=== PATIENT | female | born 1970 | race Caucasian/White ===

== ENCOUNTER 2017-04-12 22:12 | Observation (INO) | payer OTHER ==
[2017-04-12 22:31] LABS: #Basophils 0.1 thou/uL (0.0-0.2); #Eosinphils 0.1 thou/uL (0.0-0.7); #Lymphocytes 2.3 thou/uL (1.20-3.40); #Monocytes 0.5 thou/uL (0.11-0.59); #Neutrophils 3.8 thou/uL (1.40-6.50); %Basophils 1.1 % (0.0-1.0); %Eosinophils 1.3 % (0.0-10.0); Hematocrit 35.9 % (36.0-47.0); Mean Platelet Volume 9.4 fL (7.4-10.4); White Blood Cell (WBC) Count 6.8 thou/uL (4.8-10.8)
[2017-04-12 22:38] LABS: PTT 27.4 SEC (22.9-36.1); Prothrombin Time 14.1 SEC (12.0-14.7)
[2017-04-12 22:44] LABS: ALT (SGPT) 21 U/L (8-55); AST (SGOT) 21 U/L (5-34); Alkaline Phosphatase 65 U/L (40-150); Anion Gap 13 mmol/L (10-20); BUN (Urea Nitrogen) 13 mg/dL (7.0-18.7); Bilirubin, Total 0.3 mg/dL (0.2-1.2); Calc. Creatinine Clearance 0 mL/min (70-130); Calcium 9.3 mg/dL (7.8-10.44); Carbon Dioxide 24 mmol/L (22-29); Chloride 106 mmol/L (98-107); Estimated GFR-MDRD 71; Globulin 3.7 g/dL (2.4-3.5); Protein, Total 7.5 g/dL (6.0-8.3)
[2017-04-12 22:49] LABS: Troponin I Less than 0.010 ng/mL (< 0.028)
[2017-04-12] MEDS ORDERED: Aspirin 325 MG TAB ONE (22:56)
--- NOTE | 2017-04-12 23:13 | CT ---
CT OF THE BRAIN WITHOUT CONTRAST 04/12/17 COMPARISON: 01/05/17 HISTORY: Right sided facial weakness and tingling. Slurred speech that is resolving. Patient was seen last no rmal at 45 minutes prior to arrival. TECHNIQUE: Multiple contiguous axial images were obtained in a CT of the brain without contrast. FINDINGS: The brain is normal in morphology and attenuation without focal lesions or confluent areas of infarc tion. There is no evidence of hydrocephalus, intracranial hemorrhage or extra-axial fluid collection . The calvarium and overlying soft tissues are unremarkable. The visualized paranasal sinuses and mast oid air cells are well aerated. IMPRESSION: No evidence of acute intracranial abnormality. Dr. Mendes notified of the findings at 10:22 p.m. on 04/12/17. POS: [facility]
[2017-04-12 23:36] LABS: Bilirubin Negative (Negative); Glucose, Urine (Dipstick) 250 mg/dL (Negative); Ketone, Urine Negative (Negative)
[2017-04-12 23:37] LABS: Blood, Urine Negative (Negative); Nitrite Negative (Negative); Protein, Urine (Dipstick) 30 mg/dL (Neg-Trace)
[2017-04-12 23:44] LABS: Bacteria/HPF None Seen HPF (None Seen); Hyaline Casts/LPF 0-3 HYALINE CAST LPF (0-3 Hyaline); RBC/HPF 0-3 HPF (0-3); Squamous Epithelial 0-3 HPF (0-3); WBC/HPF 0-3 HPF (0-3)
[2017-04-13] MEDS ORDERED: Sodium Chloride 0.9% 1,000 ML IV SCH (00:28)
[2017-04-13] MEDS ORDERED: Ondansetron HCl/PF 4 MG/2 ML Vial IVP PRN (00:28)
[2017-04-13] MEDS ORDERED: Acetaminophen 325 MG TAB PO PRN (00:28)
[2017-04-13] MEDS ORDERED: Ondansetron ODT 4 MG TAB SL PRN (00:28)
[2017-04-13 00:46] VITALS: BMI 25.4
[2017-04-13] MEDS ORDERED: Meclizine HCl 25 MG TAB PO PRN (07:41)
--- NOTE | 2017-04-13 07:41 | PDOC.EVN ---
Event Note - Event Note Event Note: H&P: [id number] TIA vs. CVA (Right-sided face/arm weakness/tingling with slurred speech) * Risk factors: h/o TIA last year, HTN, HLD, CAD, DM2 * CT brain: no acute issue * check MRI brain * check Carotid Dopplers * check ECHO * consult neurology * consult PT/OT * check labs in AM #CAD * no chest pain * continue home meds #h/o RLE DVT * continue Eliquis #DM2 * check HbA1c * SSI * f/u accu checks #HLD * check FLP #Hypothyroidism * continue replacement therapy Admit to stroke unit.
[2017-04-13] MEDS ORDERED: Dextrose 5% in Water 1,000 ML IV PRN (07:42)
[2017-04-13] MEDS ORDERED: Dextrose 50% Abboject 50 ML SYRINGE SLOW IVP PRN (07:42)
[2017-04-13] MEDS ORDERED: Lorazepam 2 MG/ML VIAL SLOW IVP SCH (08:00)
[2017-04-13] MEDS ORDERED: Aspirin 325 mg Enteric Coated Tablet PO SCH (09:00)
[2017-04-13] MEDS ORDERED: INSULIN GLARGINE HUM REC ANLOG 40 UNIT SC SCH (09:00)
[2017-04-13] MEDS ORDERED: Levothyroxine Sodium 50 MCG TAB PO SCH (09:00)
[2017-04-13] MEDS: Gabapentin 300 MG CAP PO SCH ×3 (09:56→20:45)
[2017-04-13] MEDS: Losartan Potassium 25 MG TAB PO SCH (09:56)
--- NOTE | 2017-04-13 09:56 | HP ---
DATE OF ADMISSION: 04/13/2017 at 7:49 a.m. CHIEF COMPLAINT: Right-sided weakness and slurred speech. HISTORY OF PRESENT ILLNESS: This is a 46-year-old female who presented as a result right-sided faci al and arm weakness and tingling and slurred speech. The symptoms occurred while she was driving ap proximately 45 minutes prior to arrival to the ER here. The patient does have risk factors for stro ke including a transient ischemic attack last year, hypertension, diabetes mellitus, dyslipidemia, a nd coronary artery disease. Currently, the patient reports that her right-sided symptoms are slightly better today. She does no t have any slurred speech on my exam. She denies any chest pain, shortness of breath, fevers, chill s, nausea or vomiting. REVIEW OF SYSTEMS: A 14 point review of systems is negative except as otherwise indicated above in the HPI. PAST MEDICAL HISTORY: 1. History of transient ischemic attack last year. 2. Right lower extremity DVT on Eliquis. 3. Hypertension. 4. Diabetes mellitus. 5. Dyslipidemia. 6. Coronary artery disease. PAST SURGICAL HISTORY: 1. Appendectomy. 2. section x2. FAMILY HISTORY: Reviewed and noncontributory to the presenting illness. SOCIAL HISTORY: The patient denies any tobacco, alcohol or illicit drug use. ALLERGIES/MEDICATIONS/LABORATORY/ IMAGING: Reviewed, please refer to chart for details. PHYSICAL EXAMINATION: VITAL SIGNS: Temperature 98.4, 66, 14, 94% on room air, 122/74. GENERAL: The patient was lying comfortably in bed when I entered the room in no acute distress. HEENT: Normocephalic, atraumatic. NECK: Supple, no masses. LYMPH NODES: No cervical or supraclavicular lymphadenopathy. CARDIOVASCULAR: S1 and S2 audible. Regular rate and rhythm. LUNGS: Clear to auscultation bilaterally with no wheezes, rales or rhonchi. ABDOMEN: Soft, nontender with positive bowel sounds. No guarding, rebound or rigidity. : No CVA tenderness bilaterally. No suprapubic tenderness either. MUSCULOSKELETAL: No calf tenderness bilaterally. No clubbing, cyanosis or edema of the extremities . PSYCHIATRIC: Appropriate, cooperative. NEUROLOGIC: Alert and oriented x3, answering questions appropriately with judgment intact. No faci al asymmetry. Facilities Painter is 5/5 bilaterally in the upper extremities. SKIN: Warm, dry. Moist mucous membranes. ASSESSMENT AND PLAN: This is a 46-year-old female who presented with right-sided facial and arm wea kness with tingling and slurred speech. 1. Cerebrovascular accident versus transient ischemic attack. Risk factors for stroke include hist ory of transient ischemic attack last year, hypertension, hyperlipidemia, coronary artery disease, a nd diabetes mellitus type 2. CT of the brain did not reveal any acute issues. We will check an MRI of the brain, carotid Dopplers and an echocardiogram. We will consult Neurology, Physical Therapy and Occupational Therapy. Check labs in the morning. 2. Coronary artery disease. No chest pain. Continue home medications. 3. History of right lower extremity deep venous thrombosis. Continue Eliquis. 4. Diabetes mellitus type 2. We will check a hemoglobin A1c and start sliding scale insulin. Foll ow up Accu-Cheks a.c. and at bedtime. 5. Hyperlipidemia. Check a fasting lipid panel. 6. Hypothyroidism. Continue replacement therapy. 7. Admit to the Stroke Unit.
[2017-04-13] MEDS: Apixaban 5 MG TAB PO SCH ×2 (09:57→20:45)
[2017-04-13] MEDS: Insulin Detemir 100 UNITS/ML 40 UNITS in Pre-Filled Syringe 1 EACH SC SCH (10:04)
--- NOTE | 2017-04-13 10:20 | ULT ---
BILATERAL CAROTID DUPLEX ULTRASOUND: DATE: 04/13/17 HISTORY: TIA. TECHNIQUE: Villela scale ultrasound with color flow and spectral Doppler imaging of the extracranial carotid arter y systems performed. FINDINGS: No significant plaque formation or intimal wall thickening is seen on either side. The peak systolic velocity in the right ICA measures 77 cm/second with an end-diastolic velocity of 25 cm/second and a systolic ratio of 0.96. The peak systolic velocity in the left ICA measures 68 cm/second with an end-diastolic velocity of 2 3 cm/second and a systolic ratio of 0.71. Flow in both vertebral arteries remains antegrade. IMPRESSION: No evidence of hemodynamically significant stenosis. POS: [facility]
--- NOTE | 2017-04-13 12:19 | MRI ---
MRI BRAIN WITHOUT CONTRAST: Date: 04/13/17 Multiplanar, multisequential imaging of brain obtained according to brain protocol. HISTORY: TIA. Right-sided facial weakness and tingling. Slurred speech. COMPARISON: MRI brain dated 06/30/16. FINDINGS: Ventricles remain normal size and position. No evidence of mass or edema. No evidence of restricted diffusion. No evidence of significant white matter abnormality. The intracranial internal carotid ar teries, proximal cerebral arteries, and basilar arteries show flow-voids. Dural venous sinuses appea r patent. Paranasal sinuses and mastoids appear clear. IMPRESSION: No evidence of acute process. POS: [facility]
[2017-04-13] MEDS: Insulin Regular 300 UNITS/3 ML VIAL SC PRN ×3 (12:48→20:46)
--- NOTE | 2017-04-14 02:35 | CON ---
DATE OF CONSULTATION: 04/13/2017 LOCATION: [address] [place] [address], [facility]. REASON FOR CONSULTATION: TIA. CONSULTING PHYSICIAN: Dr. Patel. HISTORY OF PRESENT ILLNESS: The history is obtained from the chart review and from the patient, who was able to provide history. Patient is a 46-year-old female with past medical history of right lo wer extremity DVT, on Eliquis; who is compliant with her Eliquis, hypertension, diabetes, dyslipidem ia, coronary artery disease, who has had several admissions in the past including one in 06/2016 wit h left-sided numbness of the face. Another admission in 12/2016 with dizziness, head numbness and p assing out, and another admission in 12/2016 where she had pressure in her head, bugs crawling on th e right side of her head and numbness of her fingers and feet and dizziness. All her workup in the past had been negative. Patient presents to the hospital because she says that for the past few days she was not feeling goo d. She was getting tired and short of breath, felt very weak and had to sit down. Then yesterday, she noticed that the right side of her body went numb including the head, face, arm, and leg. She h ad tingling and bugs crawling sensation. She felt dizzy. She said that her right side was weak and it would hurt when she would move her right side. She was told by other people that maybe she had some drooping of the face on the right side and slurred speech. At that time she denied any loss of consciousness, seizure activity. Denied any recent fever, infection. She said that she had a coup le of loose bowel movements yesterday morning. Because of her symptoms, she presented to the ER and was subsequently admitted for TIA workup. Currently, she still feels like she has pressure headache, has slurred speech. The numbness on the right side is better, but not completely resolved. She still feels weak on the right side. She ray d that she has history of migraine headaches, but has not had a migraine headache in the past 3-4 ye ars. She currently does have a headache, but it is not as intense as migraine headache. Currently, patient does mention that she has been under a lot of stress in lately because her son berg d some behavioral issues and had to be taken to [facility] and then has been moved to the long term today , so she has been constantly worried about him and is under a lot of stress because of that. She sa ys that she keep herself well hydrated. PAST MEDICAL HISTORY: As mentioned in the HPI. PAST SURGICAL HISTORY: Appendectomy, x2. FAMILY HISTORY: Noncontributory. SOCIAL HISTORY: Denies tobacco, alcohol or illicit drug use. ALLERGIES: Please review the chart. REVIEW OF SYSTEMS: As mentioned in the HPI, otherwise negative. PHYSICAL EXAMINATION: VITAL SIGNS: Temperature 98.7, pulse rate 70, respiratory rate 16, O2 sats 95% on room air, blood p ressure 124/62. GENERAL: Well-developed, well-nourished female, in no apparent distress. HEENT: Normocephalic, atraumatic. Normal sclerae. NECK: Supple. RESPIRATORY: Clear to auscultation bilaterally. CARDIOVASCULAR: Regular rate and rhythm. NEUROLOGIC: The patient is awake, alert, oriented x3. Speech and language intact. No aphasia, no dysarthria noted. The patient was slow in her responses. Cranial nerves: Pupils were reactive to light bilaterally. Extraocular movements were intact. Visual lynch were full bilaterally. No fac ial droop noted. Facial sensation intact and symmetric bilaterally. No nystagmus noted. Motor: N ormal tone and bulk. The patient had 5/5 strength in bilateral upper and lower extremity. Finger t apping and finger gripping intact and symmetric bilaterally. Sensation intact to fine touch through out. Reflexes 1+. Coordination was intact to [id number] testing in upper extremities and i ntact in lower extremities as well. Gait and Romberg not tested. LABORATORY DATA: CBC with normal white cell count. Chemistry: Glucose 200. Electrolytes normal. LFTs normal. Urinalysis showed protein and glucose. IMAGING: The patient had CT head done on admission, which did not show any acute intracranial abnor mality. MRI brain was done, which did not show any acute intracranial process, no acute infarct, no mass, no edema, no evidence of demyelinating lesions. No hemorrhage. The patient had carotid Dopp ler study done, which did not show any significant stenosis. IMPRESSION: 1. Symptoms of right-sided numbness, tingling, weakness, slurred speech, and questionable facial dr oop. 2. Pressure headache. 3. Stress. RECOMMENDATIONS: 1. Patient's MRI did not show any acute stroke, did not show any mass or lesions or demyelination, no hemorrhage. The patient still continues to have her symptoms, even though improved and MRI being negative, tells us that this is not due to any acute intracranial abnormality. Her symptoms could be due to headache related, part of possible migraine event or could be stress related as well. As mentioned earlier MRI did not show any acute stroke, so this is not stroke related, not related to a ny mass, hemorrhage or demyelinating lesions. This could be headache related or stress related. At this point, recommend continuing patient on home dose Eliquis only, informed the patient that addin g aspirin to Eliquis would increase the risk of bleeding and since MRI does not show any stroke, it would not be beneficial to add aspirin to Eliquis and it will only increase the risk of bleeding. S o, at this point do not recommend that, just continue patient on home dose Eliquis. 2. Continue medical management per primary team. No other recommendations from neurological standp oint. Continue follow up with PT, OT, and speech therapy. 3. Continue medical management per primary team. We will sign off. Please call us with questions.
[2017-04-14 05:24] LABS: #Basophils 0.1 thou/uL (0.0-0.2); #Eosinphils 0.1 thou/uL (0.0-0.7); #Lymphocytes 1.9 thou/uL (1.20-3.40); #Monocytes 0.4 thou/uL (0.11-0.59); #Neutrophils 3.9 thou/uL (1.40-6.50); %Basophils 0.9 % (0.0-1.0); %Eosinophils 2.2 % (0.0-10.0); %Lymphocytes 29.4 % (21.0-51.0); %Monocytes 6.6 % (0.0-10.0); Hematocrit 37.6 % (36.0-47.0); Mean Platelet Volume 9.6 fL (7.4-10.4); Red Blood Cell (RBC) Count 4.71 mill/uL (4.20-5.40); White Blood Cell (WBC) Count 6.4 thou/uL (4.8-10.8)
[2017-04-14 05:32] LABS: Hemoglobin A1c 8.9 % (4.0-6.0)
[2017-04-14 05:46] LABS: Anion Gap 13 mmol/L (10-20); BUN (Urea Nitrogen) 13 mg/dL (7.0-18.7); Calc. Creatinine Clearance 103 mL/min (70-130); Calcium 9.3 mg/dL (7.8-10.44); Carbon Dioxide 23 mmol/L (22-29); Chloride 107 mmol/L (98-107); Cholesterol 178 mg/dl (< 200 Desired); Estimated GFR-MDRD 88; LDL Cholesterol, Calculated 110 mg/dL; Magnesium 1.9 mg/dL (1.6-2.6)
[2017-04-14] MEDS ORDERED: Levothyroxine Sodium 50 MCG TAB PO SCH (06:00)
--- NOTE | 2017-04-14 07:42 | PDOC.PN ---
- Subjective Encounter Start Date: 04/14/17 Encounter Start Time: 07:39 Subjective: Moderate GONZALEZ today -: No n/v -: No f/c - Objective MAR Reviewed: Yes Vital Signs & Weight: Vital Signs (12 hours) Temp Pulse Resp BP Pulse Ox 04/14/17 04:42 97.8 F 61 16 99/54 L 98 04/13/17 23:10 98.3 F 66 16 116/64 95 04/13/17 20:00 98.4 F 73 16 137/87 98 Weight Weight 145 lb 14.4 oz I&O: 04/13/17 04/14/17 04/15/17 06:59 06:59 06:59 Intake Total 926 1250 Balance 926 1250 Result Diagrams: 04/14/17 04:48 04/14/17 04:49 Additional Labs: Accuchecks 04/14/17 04/13/17 04/13/17 04:23 20:25 16:59 POC Glucose 136 H 217 H 181 H 04/13/17 11:41 POC Glucose 178 H Phys Exam - Physical Examination Constitutional: NAD HEENT: moist MMs, sclera anicteric Neck: no nodes, no JVD Respiratory: no wheezing, no rales, no rhonchi, clear to auscultation bilateral Cardiovascular: no significant murmur, no rub Gastrointestinal: soft, non-tender, positive bowel sounds Neurological: non-focal Psychiatric: normal affect Skin: no rash, normal turgor Dx/Plan - Plan TIA vs. Migraine (Right-sided face/arm weakness/tingling with slurred speech) * Risk factors: h/o TIA last year, HTN, HLD, CAD, DM2 * CT brain: no acute issue * MRI brain: no acute issue * Carotid Dopplers: unremarkable * ECHO: pending * consulted neurology - signed off * LDL 110 * PT/OT * will start IVFs as pt is hypotensive and dehydration could be contributing to her headache * check labs in AM #CAD * no chest pain * continue home meds #h/o RLE DVT * continue Eliquis #DM2 * HbA1c: 8.9% * SSI * f/u accu checks #HLD * check FLP #Hypothyroidism * continue replacement therapy Dispo: Home tomorrow after re-hydrated with IVFs.
[2017-04-14] MEDS ORDERED: Sodium Chloride 0.9% 1,000 ML IV SCH (07:45)
[2017-04-14] MEDS: Insulin Detemir 100 UNITS/ML 40 UNITS in Pre-Filled Syringe 1 EACH SC SCH (09:30)
[2017-04-14] MEDS: Gabapentin 300 MG CAP PO SCH ×2 (09:31→14:35)
[2017-04-14] MEDS: Apixaban 5 MG TAB PO SCH (09:31)
[2017-04-14] MEDS: Losartan Potassium 25 MG TAB PO SCH (09:31)
[2017-04-14] MEDS: Insulin Regular 300 UNITS/3 ML VIAL SC PRN (11:21)
[2017-04-14] MEDS ORDERED: Acetaminophen 325 MG TAB PO PRN (11:45)
[2017-04-14] MEDS ORDERED: Hydrocortisone 1% Cream 1.5 GM Packet TOP PRN (11:46)
--- NOTE | 2017-04-14 15:33 | PDOC.EVN ---
Event Note - Event Note Event Note: Discharge Summary: [id number]
[2017-04-14 15:52] VITALS: BP 130/83; TEMP 98.7
--- NOTE | 2017-04-14 20:01 | DIS ---
DATE OF ADMISSION: 04/13/2017 DATE OF DISCHARGE: 04/14/2017 PRIMARY DISCHARGE DIAGNOSIS: Migraines headache versus transient ischemic attack with right-sided f jonatan and arm weakness with tingling and slurred speech. SECONDARY DISCHARGE DIAGNOSES: 1. Coronary artery disease. 2. Right lower extremity deep venous thrombosis. 3. Diabetes mellitus type 2. 4. Hyperlipidemia. 5. Hypothyroidism. HOSPITAL COURSE SUMMARY: This is a very pleasant 46-year-old female, who presented with right-sided face and arm weakness with tingling and slurred speech. Her symptoms resolved soon after presentin g to the hospital and likely had a TIA versus migraine. Her CT of the brain, MRI of the brain, claudio tid Dopplers and echo were unremarkable. Neurology did not have anything to add in terms of stroke workup. The patient will be prescribed on a statin for elevated LDL. She has now been slightly hyd rated as dehydration was likely reasonable at least apart for her migraine. DISCHARGE PHYSICAL EXAMINATION, LABS AND IMAGING: Reviewed. Please refer to chart for details. DISCHARGE MEDICATIONS: Reviewed and reconciled. Please refer to EMR for details. DISCHARGE PLAN/DISPOSITION: 1. Discharge home today. 2. The patient has been advised to maintain adequate hydration and avoid dry mouth and signs of deh ydration.
[2017-04-14] MEDS ORDERED: Simvastatin 5 MG TAB PO SCH (21:00)
== END 2017-04-14 17:30 | disposition home or self-care (01) ==
LOC: ERS 22:12 → 2SE 23:12
PROVIDERS: ADMIT Internal Medicine; ATTEND Internal Medicine
DX: G43.909 Migraine, unspecified, not intractable, without status migrainosus (principal); G45.9 Transient cerebral ischemic attack, unspecified; R29.810 Facial weakness; R53.1 Weakness; R20.2 Paresthesia of skin; R47.81 Slurred speech; I25.10 Atherosclerotic heart disease of native coronary artery without angina pectoris; I82.401 Acute embolism and thrombosis of unspecified deep veins of right lower extremity; E11.9 Type 2 diabetes mellitus without complications; E78.5 Hyperlipidemia, unspecified; E03.9 Hypothyroidism, unspecified; E86.0 Dehydration; I10 Essential (primary) hypertension; Z79.4 Long term (current) use of insulin; Z79.01 Long term (current) use of anticoagulants; Z79.899 Other long term (current) drug therapy; Z88.5 Allergy status to narcotic agent; Z88.0 Allergy status to penicillin; Z88.2 Allergy status to sulfonamides; Z90.49 Acquired absence of other specified parts of digestive tract; Z98.890 Other specified postprocedural states; Z87.891 Personal history of nicotine dependence
CPT/HCPCS: 36415; 36416; 70450; 70551; 80048; 80053; 80061; 81003; 81015; 82553; 83036; 83735; 84484; 85025; 85610; 85730; 93005; 93306; 93880; 94760; 96361; 96374; A4216; G0378; G8978-GP-CJ; G8979-GP-CJ; G8980-GP-CJ; G8987-GO-CI; G8988-GO-CI; G8989-GO-CI; J1815; J2060

== ENCOUNTER 2017-04-29 12:10 | Emergency (ER) | payer OTHER ==
[2017-04-29 13:30] LABS: Bilirubin Negative (Negative); Blood, Urine Negative (Negative); Glucose, Urine (Dipstick) Negative (Negative); Ketone, Urine Negative (Negative); Nitrite Negative (Negative); Protein, Urine (Dipstick) Trace mg/dL (Neg-Trace)
[2017-04-29] MEDS ORDERED: Metoclopramide HCl 10 MG/2 ML VIAL ONE (13:34)
[2017-04-29] MEDS ORDERED: diphenhydrAMINE HCl 50 MG/ML 1 ML VIAL ONE (13:34)
[2017-04-29 13:59] LABS: #Eosinphils 0.1 thou/uL (0.0-0.7); #Lymphocytes 1.4 thou/uL (1.20-3.40); #Monocytes 0.3 thou/uL (0.11-0.59); #Neutrophils 3.3 thou/uL (1.40-6.50); %Basophils 0.5 % (0.0-1.0); %Eosinophils 1.3 % (0.0-10.0); %Lymphocytes 27.8 % (21.0-51.0); %Monocytes 6.4 % (0.0-10.0); Mean Platelet Volume 9.2 fL (7.4-10.4); Red Blood Cell (RBC) Count 4.27 mill/uL (4.20-5.40); White Blood Cell (WBC) Count 5.2 thou/uL (4.8-10.8)
[2017-04-29 14:05] LABS: PTT 29.5 SEC (22.9-36.1); Prothrombin Time 16.5 SEC (12.0-14.7)
[2017-04-29 14:25] LABS: ALT (SGPT) 22 U/L (8-55); AST (SGOT) 21 U/L (5-34); Alkaline Phosphatase 63 U/L (40-150); Anion Gap 12 mmol/L (10-20); BUN (Urea Nitrogen) 11 mg/dL (7.0-18.7); Bilirubin, Total 0.5 mg/dL (0.2-1.2); Calc. Creatinine Clearance 0 mL/min (70-130); Calcium 8.9 mg/dL (7.8-10.44); Carbon Dioxide 26 mmol/L (22-29); Chloride 104 mmol/L (98-107); Estimated GFR-MDRD 85; Globulin 3.4 g/dL (2.4-3.5); Protein, Total 6.9 g/dL (6.0-8.3)
== END 2017-04-29 15:13 | disposition home or self-care (01) ==
LOC: ERS 12:10
DX: E11.40 Type 2 diabetes mellitus with diabetic neuropathy, unspecified (principal); R51 Headache; E78.5 Hyperlipidemia, unspecified; I10 Essential (primary) hypertension; F31.9 Bipolar disorder, unspecified; Z86.718 Personal history of other venous thrombosis and embolism
CPT/HCPCS: 36415; 80053; 81003; 81025; 85025; 85610; 85730; 96361; 96365; 96375; J1200; J2765

== ENCOUNTER 2017-09-07 05:51 | Emergency (ER) | payer OTHER ==
[2017-09-07 06:27] LABS: #Eosinphils 0.1 thou/uL (0.0-0.7); #Lymphocytes 1.9 thou/uL (1.20-3.40); #Monocytes 0.4 thou/uL (0.11-0.59); #Neutrophils 1.8 thou/uL (1.40-6.50); %Basophils 0.1 % (0.0-1.0); %Eosinophils 2.7 % (0.0-10.0); %Lymphocytes 45.3 % (21.0-51.0); Hemoglobin 10.5 g/dL (12.0-16.0); Mean Corpuscular HGB CONC 31.9 g/dL (32.0-36.0); Mean Corpuscular Hemoglobin 24.8 pg (27.0-31.0); Mean Corpuscular Volume 77.6 fl (81.0-99.0); Platelet Count 204 thou/uL (130-400); RBC Distribution Width 14.7 % (11.5-14.5); Red Blood Cell (RBC) Count 4.24 mill/uL (4.20-5.40); White Blood Cell (WBC) Count 4.3 thou/uL (4.8-10.8)
[2017-09-07 06:48] LABS: ALT (SGPT) 24 U/L (8-55); AST (SGOT) 26 U/L (5-34); Alkaline Phosphatase 74 U/L (40-150); Anion Gap 12 mmol/L (10-20); BUN (Urea Nitrogen) 19 mg/dL (7.0-18.7); Bilirubin, Total 0.2 mg/dL (0.2-1.2); CK (CPK) 153 U/L (29-168); Calc. Creatinine Clearance 0 mL/min (70-130); Calcium 9.8 mg/dL (7.8-10.44); Carbon Dioxide 29 mmol/L (22-29); Chloride 105 mmol/L (98-107); Estimated GFR-MDRD 67; Globulin 3.6 g/dL (2.4-3.5); Glucose 236 mg/dL (70-105); Potassium 3.5 mmol/L (3.5-5.1); Protein, Total 7.6 g/dL (6.0-8.3); Sodium 142 mmol/L (136-145)
[2017-09-07 06:52] LABS: CKMB 1.7 ng/mL (0-6.6); Troponin I Less than 0.010 ng/mL (< 0.028)
[2017-09-07] MEDS ORDERED: Ondansetron HCl/PF 4 MG/2 ML Vial ONE (06:52)
[2017-09-07] MEDS ORDERED: Aspirin 325 MG TAB ONE (06:58)
--- NOTE | 2017-09-07 07:52 | RAD ---
RADIOGRAPH CHEST 1 VIEW: DATE: 09/07/17. TIME: 6:20 a.m. HISTORY: A 46-year-old female with acute chest pain. FINDINGS: There is no air space density, pulmonary edema, or pneumothorax. The lateral costophrenic angles are sharp. IMPRESSION: No acute pulmonary findings. jn [] POS: [facility]
--- NOTE | 2017-09-07 08:42 | ULT ---
ULTRASOUND WITH DOPPLER DUPLEX VENOUS LOWER EXTREMITY LEFT: CPT: 52644 ICD-10-PCS: B54D HISTORY: Pain and edema. TECHNIQUE: Color flow Doppler, spectral waveform analysis of pulsed Doppler, and omer-scale imaging with ramon michelle and augmentation, were used to evaluate the bilateral common femoral, femoral, popliteal, director ambulatory ior tibial, and superficial femoral, veins; and the proximal portions of the profunda femoral and gre ater saphenous, veins. FINDINGS: Appropriate compressibility and flow within the imaged deep vein system of the left lower extremity. IMPRESSION: No deep venous thrombosis. POS: [facility]
[2017-09-07 08:58] LABS: Troponin I Less than 0.010 ng/mL (< 0.028)
--- NOTE | 2017-09-30 17:34 | EKG ---
Test Reason : Blood Pressure : / mmHG Vent. Rate : 067 BPM Atrial Rate : 067 BPM P-R Int : 182 ms QRS Dur : 080 ms QT Int : 402 ms P-R-T Axes : 017 -08 028 degrees QTc Int : 424 ms Normal sinus rhythm Nonspecific T wave abnormality Abnormal ECG Confirmed by FLIP MONTGOMERY, PENELOPE ([id number]), online content editor ROSALIE GODOY ([id number]) on 09/30/2017 5:33:21 PM Referred By: Confirmed By:PENELOPE CASTELAN MD
== END 2017-09-07 09:45 | disposition home or self-care (01) ==
LOC: ERS 05:51
DX: R07.89 Other chest pain (principal); E11.9 Type 2 diabetes mellitus without complications; E78.5 Hyperlipidemia, unspecified; I10 Essential (primary) hypertension; F31.9 Bipolar disorder, unspecified; Z79.899 Other long term (current) drug therapy; Z79.4 Long term (current) use of insulin
CPT/HCPCS: 36415; 71045; 80053; 82550; 82553; 84484; 85025; 93005; 96374; J2405

== ENCOUNTER 2017-10-13 21:12 | Observation (INO) | payer OTHER ==
[~2017-10-13 21:12] MED LIST: ISOVUE-370 76%-LOCM 1 ML ONE
--- NOTE | 2017-10-13 21:47 | RAD ---
ONE VIEW CHEST: 10/13/17 HISTORY: Chest pain. COMPARISON: 09/07/17 FINDINGS: Portable upright chest demonstrates a normal cardiac silhouette. The pulmonary vessels and hilum are normal. Costophrenic angles are clear. Costophrenic angles are clear. No consolidation or mass. No pn eumothorax or osseous abnormalities. Mild elevation of the right hemidiaphragm, nonspecific. IMPRESSION: No acute cardiopulmonary process. POS: [facility]
[2017-10-13 21:51] LABS: #Lymphocytes 2.1 thou/uL (1.20-3.40); #Monocytes 0.4 thou/uL (0.11-0.59); #Neutrophils 2.9 thou/uL (1.40-6.50); %Basophils 0.4 % (0.0-1.0); %Eosinophils 0.9 % (0.0-10.0); %Lymphocytes 38.4 % (21.0-51.0); %Monocytes 6.4 % (0.0-10.0); %Neutrophils 53.9 % (42.0-75.0); Hemoglobin 10.4 g/dL (12.0-16.0); Mean Corpuscular Hemoglobin 24.2 pg (27.0-31.0); Mean Corpuscular Volume 75.8 fl (81.0-99.0); Mean Platelet Volume 9.2 fL (7.4-10.4); Platelet Count 200 thou/uL (130-400); RBC Distribution Width 15.4 % (11.5-14.5); Red Blood Cell (RBC) Count 4.29 mill/uL (4.20-5.40); White Blood Cell (WBC) Count 5.5 thou/uL (4.8-10.8)
[2017-10-13 22:03] LABS: BHCG - Serum Negative (NEGATIVE); Pregs Control Background? CLEAR/WHITE (CLR/WHITE); Pregs Control Bar Appear? YES (CONTROL BAR)
[2017-10-13 22:11] LABS: ALT (SGPT) 17 U/L (8-55); AST (SGOT) 18 U/L (5-34); Albumin 3.7 g/dL (3.5-5.0); Alkaline Phosphatase 66 U/L (40-150); Anion Gap 11 mmol/L (10-20); BUN (Urea Nitrogen) 10 mg/dL (7.0-18.7); Bilirubin, Total 0.4 mg/dL (0.2-1.2); Calc. Creatinine Clearance 0 mL/min (70-130); Calcium 9.3 mg/dL (7.8-10.44); Carbon Dioxide 28 mmol/L (22-29); Chloride 104 mmol/L (98-107); Estimated GFR-MDRD 82; Globulin 3.2 g/dL (2.4-3.5); Glucose 119 mg/dL (70-105); Potassium 3.5 mmol/L (3.5-5.1); Protein, Total 6.9 g/dL (6.0-8.3); Sodium 139 mmol/L (136-145)
[2017-10-13 22:14] LABS: CKMB 1.9 ng/mL (0-6.6); Troponin I Less than 0.010 ng/mL (< 0.028)
--- NOTE | 2017-10-13 22:15 | CT ---
EXAM: CT ANGIOGRAM OF CHEST: 10/13/17 HISTORY: Chest pain, starting 40 minutes prior to arrival. COMPARISON: 10/08/16 TECHNIQUE: CT angiogram performed in the axial plane. Bilateral oblique and coronal three dimensional reformatte d images are submitted for interpretation. FINDINGS: No mediastinal mass, lymphadenopathy or hematoma. Heart size is within normal limits. No pericardial effusion. Visualized aorta has an overall normal caliber. Evaluation is limited due to inactivity co ntrast opacification. Small amount of reflux into the proximal internal vena cava suggesting a minim al component of right heart failure. Correlate clinically. Visualized upper solid organs are unremark able. Trachea and central bronchi are patent. No masses or consolidation. No pleural effusion. No pneumotho rax. There are no lytic or blastic lesions within the osseous structures. Adequate contrast opacification of the pulmonary arterial system to the level of the segmental arteri es. No filling defect to imply thromboembolism. IMPRESSION: No evidence of pulmonary artery embolism to the level of the segmental arteries. POS: [facility]
[2017-10-13] MEDS ORDERED: Morphine 4 MG/ML VIAL ONE (22:40)
[2017-10-13] MEDS ORDERED: Ondansetron ODT 4 MG TAB SL PRN (23:51)
[2017-10-13] MEDS ORDERED: Ondansetron HCl/PF 4 MG/2 ML Vial IVP PRN (23:51)
[2017-10-13] MEDS ORDERED: Acetaminophen 325 MG TAB PO PRN (23:51)
[2017-10-14] MEDS ORDERED: Dextrose 50% Abboject 50 ML SYRINGE IVP PRN (00:23)
[2017-10-14] MEDS ORDERED: Dextrose 5% in Water 1,000 ML IV PRN (00:23)
[2017-10-14] MEDS ORDERED: HumaLOG 300 UNITS/3 ML VIAL SC PRN (00:23)
[2017-10-14] MEDS ORDERED: Morphine 5 MG/ML SYRINGE SLOW IVP PRN (00:24)
[2017-10-14] MEDS ORDERED: PROVENTIL INHALER 6.7 G (200 INHALATIONS) INH PRN (00:29)
[2017-10-14] MEDS ORDERED: Atorvastatin Calcium 40 MG TAB PO SCH ×2 (00:30→21:00)
[2017-10-14] MEDS ORDERED: Carvedilol 6.25 MG TAB PO SCH ×2 (00:30→09:00)
[2017-10-14] MEDS ORDERED: Apixaban 5 MG TAB PO SCH ×2 (00:30→09:00)
[2017-10-14] MEDS ORDERED: Nitroglycerin 2% Ointment 1 INCH/1 GM Packet TOP SCH ×2 (00:30→06:00)
[2017-10-14] MEDS ORDERED: Losartan 25 MG TAB PO SCH ×2 (00:30→21:00)
[2017-10-14] MEDS ORDERED: Gabapentin 300 MG CAP PO SCH ×2 (00:30→09:00)
[2017-10-14] MEDS ORDERED: OLANZapine 5 MG TAB PO SCH ×2 (00:30→21:00)
[2017-10-14 01:05] VITALS: BMI 25.7
[2017-10-14 01:44] LABS: Troponin I Less than 0.010 ng/mL (< 0.028)
[2017-10-14 05:00] LABS: Troponin I Less than 0.010 ng/mL (< 0.028)
[2017-10-14] MEDS ORDERED: Levothyroxine Sodium 50 MCG TAB PO SCH (06:00)
[2017-10-14 07:38] VITALS: BP 110/57; TEMP 98.6
[2017-10-14] MEDS ORDERED: Insulin Detemir 100 UNITS/ML 50 UNITS in Pre-Filled Syringe 1 EACH SC SCH (09:00)
--- NOTE | 2017-10-14 09:19 | SS ---
DISCHARGE DIAGNOSES: 1. Chest wall pain. 2. History of transient ischemic attack. 3. Diabetes. 4. Hypothyroid. 5. Chronic diastolic congestive heart failure. 6. History of coronary artery disease. 7. Hyperlipidemia. 8. Hypertension. 9. History of anemia. 10. Post-traumatic stress disorder. 11. Bipolar disorder. 12. History of pulmonary embolism. DISCHARGE MEDICATIONS: Prilosec 20 mg daily. Olanzapine 5 mg at bedtime, losartan 100, losartan 50 at bedtime, Victoza 1 unit subcu daily, Synthroid 50 daily, insulin 50 units subcu q.a.m., gabapenti n 600 p.o. t.i.d., Coreg 6.25 p.o. b.i.d., Lipitor 40 at bedtime, Eliquis 5 p.o. b.i.d., albuterol p. r.n., Tylenol p.r.n. BRIEF HISTORY: This is a 46-year-old white female with a history of diabetes, hypertension, pulmonar y embolism, who presented with chest pain. The patient has a history of chest pain. She was evaluat ed in the hospital approximately one year ago and underwent a stress test which was found to be unrem arkable. She has had carotid Dopplers which were also found to be unremarkable. She recently had a pulmonary embolism and she has been on Eliquis. She works as a greenhouse worker doing physical labor. Yest erday she was pushing a cart and felt a sharp left chest wall pain. Her chest was sore throughout th e evening, especially when she picked up objects. She presented to the emergency room and was admitt ed for further observation. HOSPITAL COURSE: Cardiac enzymes were done which her troponin levels were 0.010 x3. She states her chest pain is mostly with movement and exertion. No associated nausea, vomiting, diaphoresis. She h as frequent episodes of chest pain and Dr. Walters has her scheduled to see Cardiology in the near [facility]. PHYSICAL EXAMINATION: VITAL SIGNS: Temperature is 98.6, pulse 66, blood pressure 110/57, 99/60. HEENT: Clear. HEART: Regular rate and rhythm without murmur. LUNGS: Clear. ABDOMEN: The abdomen is soft, nontender. EXTREMITIES: The patient does have marked left chest wall tenderness to palpation. She has left ch est wall pain with exertion of her left upper extremity. It appears that she has a pectoralis strain . I recommended that the patient take Tylenol as needed. I informed her to follow up with Dr. Walters on Monday. She is not to return to work until cleared by Dr. Walters. If she has any recurrent ch est pain to return to the emergency room MARJORIE. Other labs; electrolytes are normal. Creatinine 0.76, BUN 10. White count 5.5, H&H 10 and 32.
== END 2017-10-14 09:17 | disposition home or self-care (01) ==
LOC: ERS 21:12 → 2SW 23:29
PROVIDERS: ADMIT Family Medicine; ATTEND Family Medicine
DX: R07.89 Other chest pain (principal); E11.9 Type 2 diabetes mellitus without complications; E03.9 Hypothyroidism, unspecified; I11.0 Hypertensive heart disease with heart failure; I50.32 Chronic diastolic (congestive) heart failure; I25.10 Atherosclerotic heart disease of native coronary artery without angina pectoris; E78.5 Hyperlipidemia, unspecified; D64.9 Anemia, unspecified; F43.10 Post-traumatic stress disorder, unspecified; F31.9 Bipolar disorder, unspecified; Z79.01 Long term (current) use of anticoagulants; Z79.4 Long term (current) use of insulin; Z79.899 Other long term (current) drug therapy; Z88.0 Allergy status to penicillin; Z88.2 Allergy status to sulfonamides; Z88.5 Allergy status to narcotic agent; Z86.711 Personal history of pulmonary embolism; Z86.73 Personal history of transient ischemic attack (TIA), and cerebral infarction without residual deficits
CPT/HCPCS: 36415; 36416; 71045; 71275; 80053; 82553; 84484; 84703; 85025; 93005; 96361; 96374; A4216; G0378; J1815; J2270

== ENCOUNTER 2017-11-03 14:23 | Outpatient (CLI) | payer OTHER ==
--- NOTE | 2017-11-03 15:18 | ULT ---
BILATERAL LOWER EXTREMITY VENOUS DOPPLER: HISTORY: M79.661, right calf pain. History of deep venous thrombosis. COMPARISON: None. TECHNIQUE: Real-time, omer scale, color Doppler, and spectral analysis of the bilateral lower extremity venous s ystem was performed with a linear ray transducer. Common femoral, femoral, proximal portion of great er saphenous and deep femoral veins as well as popliteal and posterior tibial veins were interrogated . FINDINGS: Normal flow, augmentation, and compression. No deep venous thrombosis. POS: [facility]
== END 2017-11-03 14:24 | disposition home or self-care (01) ==
LOC: ULT 14:23
PROVIDERS: ATTEND Family Medicine
DX: M79.661 Pain in right lower leg (principal)
CPT/HCPCS: 93970

== ENCOUNTER 2017-11-24 21:00 | Emergency (ER) | payer OTHER ==
[2017-11-24 22:05] LABS: #Basophils 0.1 thou/uL (0.0-0.2); #Eosinphils 0.1 thou/uL (0.0-0.7); #Lymphocytes 2.5 thou/uL (1.20-3.40); #Monocytes 0.4 thou/uL (0.11-0.59); #Neutrophils 3.1 thou/uL (1.40-6.50); %Basophils 1.3 % (0.0-1.0); %Eosinophils 1.1 % (0.0-10.0); %Lymphocytes 40.4 % (21.0-51.0); %Monocytes 6.4 % (0.0-10.0); %Neutrophils 50.9 % (42.0-75.0); Hemoglobin 11.9 g/dL (12.0-16.0); Mean Corpuscular HGB CONC 33.2 g/dL (32.0-36.0); Mean Corpuscular Volume 78.2 fl (81.0-99.0); Mean Platelet Volume 9.4 fL (7.4-10.4); Platelet Count 199 thou/uL (130-400); RBC Distribution Width 16.8 % (11.5-14.5); Red Blood Cell (RBC) Count 4.59 mill/uL (4.20-5.40); White Blood Cell (WBC) Count 6.1 thou/uL (4.8-10.8)
[2017-11-24 22:06] LABS: Bilirubin Negative (Negative); Blood, Urine Large (Negative); Clarity TURBID (Clear); Glucose, Urine (Dipstick) 250 mg/dL (Negative); Leukocyte Small (Negative); Nitrite Negative (Negative); Protein, Urine (Dipstick) 100 mg/dL (Neg-Trace); Specific Gravity, Urine 1.021 (1.002-1.036)
[2017-11-24 22:07] LABS: Pregnancy Test - Urine (BHCG) Negative (Negative); Pregu Control Background? CLEAR/WHITE (CLR/WHITE); Pregu Control Bar Appear? YES (CONTROL BAR); Specific Gravity 1.021 (1.002-1.036)
[2017-11-24 22:08] LABS: Bacteria/HPF None Seen HPF (None Seen); Hyaline Casts/LPF 0-3 HYALINE CAST LPF (0-3 Hyaline); Pathc Cast-AUWi Flag 0.49 (0-2.49); Squamous Epithelial 0-3 HPF (0-3)
[2017-11-24 22:12] LABS: RBC/HPF GREATER THAN 50-TNTC HPF (0-3); Yeast-AUWi Flag 44.1 (0-25.0)
[2017-11-24 22:27] LABS: ALT (SGPT) 22 U/L (8-55); AST (SGOT) 26 U/L (5-34); Alkaline Phosphatase 73 U/L (40-150); Anion Gap 11 mmol/L (10-20); BUN (Urea Nitrogen) 10 mg/dL (7.0-18.7); Bilirubin, Total 0.4 mg/dL (0.2-1.2); Calc. Creatinine Clearance 0 mL/min (70-130); Calcium 9.3 mg/dL (7.8-10.44); Carbon Dioxide 26 mmol/L (22-29); Chloride 106 mmol/L (98-107); Estimated GFR-MDRD 84; Globulin 3.5 g/dL (2.4-3.5); Glucose 108 mg/dL (70-105); Lipase 50 U/L (8-78); Potassium 3.2 mmol/L (3.5-5.1); Protein, Total 7.5 g/dL (6.0-8.3); Sodium 140 mmol/L (136-145)
[2017-11-24 22:32] LABS: CKMB 3.6 ng/mL (0-6.6); Troponin I Less than 0.010 ng/mL (< 0.028)
== END 2017-11-25 01:25 | disposition home or self-care (01) ==
LOC: ERS 21:00
DX: R10.30 Lower abdominal pain, unspecified (principal); R11.0 Nausea; N93.9 Abnormal uterine and vaginal bleeding, unspecified; E11.9 Type 2 diabetes mellitus without complications; E78.5 Hyperlipidemia, unspecified; I10 Essential (primary) hypertension; F31.9 Bipolar disorder, unspecified; Z79.4 Long term (current) use of insulin; Z79.899 Other long term (current) drug therapy
CPT/HCPCS: 36415; 80053; 81003; 81015; 81025; 82553; 83690; 84484; 85025; 93005

== ENCOUNTER 2017-12-22 23:07 | Inpatient (IN) | payer OTHER ==
[2017-12-22 23:47] LABS: #Eosinphils 0.1 thou/uL (0.0-0.7); #Lymphocytes 2.1 thou/uL (1.20-3.40); #Monocytes 0.4 thou/uL (0.11-0.59); #Neutrophils 3.1 thou/uL (1.40-6.50); %Basophils 0.3 % (0.0-1.0); %Eosinophils 1.2 % (0.0-10.0); %Lymphocytes 37.5 % (21.0-51.0); %Monocytes 7.1 % (0.0-10.0); Hemoglobin 10.6 g/dL (12.0-16.0); Mean Corpuscular HGB CONC 33.3 g/dL (32.0-36.0); Mean Corpuscular Volume 77.9 fl (81.0-99.0); Mean Platelet Volume 8.9 fL (7.4-10.4); Platelet Count 201 thou/uL (130-400); RBC Distribution Width 15.5 % (11.5-14.5); Red Blood Cell (RBC) Count 4.07 mill/uL (4.20-5.40); White Blood Cell (WBC) Count 5.7 thou/uL (4.8-10.8)
[2017-12-22 23:55] LABS: BHCG - Serum Negative (NEGATIVE); Pregs Control Background? CLEAR/WHITE (CLR/WHITE); Pregs Control Bar Appear? YES (CONTROL BAR)
--- NOTE | 2017-12-23 | CT ---
CT ABDOMEN AND PELVIS WITH CONTRAST 12/22/17 Multiple axial tomograms obtained through the abdomen and pelvis with IV enhancement. INDICATIONS: Abdominal pain. Left lower quadrant pain. Lung bases clear. Liver, spleen, pancreas unremarkable. Adrenal glands unremarkable. 1 cm cystic lesion in the left kidney. No hydronephrosis. No urinary tra ct calculus. Urinary bladder unremarkable. Small bowel loops appear normal. Colon unremarkable. Images through the pelvis reveal bilateral adnexal cystic lesions. There is a left adnexal cyst consi stent with an ovarian cyst measuring 4 cm and there is a right adnexal cyst consistent with an ovaria n cyst measuring 3.5 cm. No free fluid. Uterus unremarkable. Retroperitoneum unremarkable. IMPRESSION: 1. There are bilateral ovarian cystic lesions identified. 2. Otherwise no acute process. POS: [facility]
[2017-12-23 00:01] LABS: ALT (SGPT) 18 U/L (8-55); AST (SGOT) 19 U/L (5-34); Albumin 3.9 g/dL (3.5-5.0); Alkaline Phosphatase 62 U/L (40-150); Anion Gap 13 mmol/L (10-20); BUN (Urea Nitrogen) 14 mg/dL (7.0-18.7); Bilirubin, Total 0.3 mg/dL (0.2-1.2); Calc. Creatinine Clearance 0 mL/min (70-130); Calcium 9.4 mg/dL (7.8-10.44); Carbon Dioxide 25 mmol/L (22-29); Chloride 106 mmol/L (98-107); Estimated GFR-MDRD 60; Globulin 3.2 g/dL (2.4-3.5); Glucose 189 mg/dL (70-105); Potassium 3.6 mmol/L (3.5-5.1); Protein, Total 7.1 g/dL (6.0-8.3); Sodium 140 mmol/L (136-145)
[2017-12-23] MEDS ORDERED: Morphine 10 MG/ML VIAL ONE (00:44)
[2017-12-23] MEDS ORDERED: Ondansetron HCl/PF 4 MG/2 ML Vial IVP PRN (02:03)
[2017-12-23] MEDS ORDERED: Acetaminophen 325 MG TAB PO PRN (02:03)
[2017-12-23] MEDS ORDERED: Ondansetron ODT 4 MG TAB SL PRN (02:03)
[2017-12-23] MEDS ORDERED: Morphine 4 MG/ML VIAL SLOW IVP PRN ×2 (02:04)
[2017-12-23 02:29] VITALS: BMI 24.0
[2017-12-23] MEDS: Sodium Chloride 0.9% 1,000 ML IV SCH ×2 (03:25→09:10)
[2017-12-23] MEDS: Sodium Chloride 0.45% 1,000 ML IV SCH ×2 (12:27→19:51)
--- NOTE | 2017-12-23 13:58 | HP ---
CHIEF COMPLAINT: Left lower quadrant abdominal pain with bloody stools. HISTORY OF PRESENT ILLNESS: This is a 47-year-old female patient of Dr. Walters's who cam e to the emergency room after acute change to her bowels. She started noticing left lower quadrant c ramping and noticed a bloody mucoid discharge in stool. She also noted that her stools are very thin caliber about the size of a pencil lead and very bright green. In the ER, her hemoglobin was noted to be at 10.5 and a month ago was almost 12. She has been on Eliquis for PEs for a couple years such a contributing factor. PAST MEDICAL HISTORY: Positive for multiple PEs and chronic anticoagulation therapy with Eliquis, in sulin-dependent diabetes, Printzmetal's angina, history of esophageal strictures, history of Helicoba cter pylori infection, history of hypothyroidism, has had a TIA, has a diastolic congestive heart garima lure, hypertension, hyperlipidemia. She has diabetic neuropathy. She has bipolar disorder, likely s econdary to a remote history of crack cocaine and methamphetamine addiction, which she has stopped 17 years ago and also she had a left leg DVT, followed by multiple PEs. PAST SURGICAL HISTORY: She had appendectomy. She had a x2 and had a bilateral tubal ligat ion. She had an esophageal dilation done at [facility] in 2017. ALLERGIES: PENICILLIN, SULFA, and CODEINE. MEDICATIONS: What she could not remember when she came to the emergency room was Eliquis 5 mg b.i.d. , Lantus 50 units in the morning, NovoLog, she is on a sliding scale q.a.c., says she averages about 4 units. She is also on Victoza 18 mg daily. She is on losartan 100 mg, Synthroid 25 mcg, and gabap entin 600 mg t.i.d. She also thought she might have been on lisinopril. Confirmed with the office francis tamez, she is no longer on lisinopril. Office chart also showed that she is on carvedilol 6.25 mg b.i .d., Lipitor 10 mg a day, BuSpar 10 mg b.i.d., hydroxyzine 50 mg a day and olanzapine 5 mg a day. FAMILY HISTORY: She has 2 maternal aunts who had pancreatic cancer, diabetes and coronary artery dis ease in her father. Mother is also still alive, but no chronic diseases. SOCIAL HISTORY: She is , has two living children, both by . She had 2 children that , one from a miscarriage and one was stillborn. Their youngest child is 22 and has sever e MR and lives with them. She has no current toxic habits. She did have a history of crack cocaine addiction and methamphetamine addiction, which she stopped 17 years ago. They use city water. All i mmunizations are up to date. REVIEW OF SYSTEMS: She denies any changes in vision, no headache, no fevers, no chills. No trouble chewing or swallowing, other than she thinks she might be developing her esophageal stricture again s lightly, but no nausea or vomiting, denies any constipation, but as this recent change to her bowels. Denies any dysuria, hematuria. Denies any paresis or paresthesias. Denies any suicidal or homicid al ideations. Denies any auditory or visual hallucinations. PHYSICAL EXAMINATION: VITAL SIGNS: Her temperature 97.8, pulse 68, respiration is 18, BP is 130/70s. HEENT: Essentially unremarkable. Pupils equal, round, and reactive to light and accommodation. Ext raocular movements are intact. Mucous membranes slightly dry. NECK: Supple, no JVD, no bruits, no thyromegaly. LUNGS: Clear to auscultation bilaterally. HEART: S1, S2, with no rubs, murmurs, or gallops. Pulses regular. ABDOMEN: Soft, nondistended. Hypoactive bowel sounds, slight tenderness to palpation left lower osman drant, but no rebound or guarding. GENITOURINARY: Exams deferred. EXTREMITIES: Good palpable pulses x4, no cyanosis or edema. NEUROLOGIC: She was alert and oriented x4. Cranial nerves II-XII are equal and symmetrical. No mot or or sensory deficits noted. LABORATORY AND X-RAY FINDINGS: White count is 5.7, H and H is 10.6 and 31.7 with 201,000 platelets. Her hemoglobin was 11.9 one month ago. Her sodium is 140, potassium 3.6, chloride 106, bicarbonate 25, BUN is 14, creatinine is 1.0 with a glucose of 189, AST and ALT are normal at 19 and 18. They al so did an hCG in the ER which was negative. Stools were positive for blood. CT was done in the ER w hich showed only some adnexal cysts. No free fluid, no free air, no obvious mass. ASSESSMENT: Left lower quadrant pain with hematochezia with abnormal micro caliber stool on Eliquis. GI has been consulted for likely colonoscopy.
[2017-12-23] MEDS ORDERED: GoLYTELY 4,000 ml Bottle PO SCH (17:00)
--- NOTE | 2017-12-23 20:01 | CON ---
DATE OF CONSULTATION: 12/23/2017 REASON FOR CONSULTATION: Hematochezia, dysphagia. CONSULTING PHYSICIAN: Edwin Aj D.O. HISTORY OF PRESENT ILLNESS: The patient is a 47-year-old female with past medical history of hyperte nsion, hyperlipidemia, coronary artery disease, neuropathy, DVT on chronic anticoagulation (Eliquis) and history of esophageal stricture, presenting with continued complaints of dysphagia and hematochez ia. Considering her hematochezia, she states that she has been intermittently having the occurrence of bright red blood per rectum that has occurred approximately twice within the last year with the mo st recent being yesterday. The blood was seen as bright red blood per rectum that was present only o n the toilet paper, not in the toilet and not associated with any diaphoresis or weakness. However, she also does endorse left lower quadrant/periumbilical abdominal pain that has been present for the last 2-3 months intermittently. This pain will occur independently of the hematochezia and is not ne cessarily associated with it. The pain that she experiences is characterized as a cramping abdominal pain, intermittent, will radiate to the generalized abdomen and can reach a severity of 6-7/10. The re is no clear alleviating or exacerbating factors, although she said sometimes it will be alleviated with the passage of having a bowel movement. She currently has approximately 1-2 solid to semisolid bowel movements per day, but does require increased straining and at times has required manual disim paction in order to defecate. Concerning her dysphagia, she states that for the last year and a half, she has been having complaint s of intermittent dysphagia characterized as the sensation that food is getting stuck at the level of the sternal notch. This would occur primarily with the consumption of solid food stuffs including m eats and breads, but would not occur with ingestion of liquids. She also endorses increased coughing /gagging with these intermittent occurrences of dysphagia, although sometimes the sensation would ind ependently of those symptoms. Of note, she does have a history of an esophageal stricture for which she had been seen at [facility] in [place] and underwent EGD within the last year with esoph ageal dilation performed at that time. She did have improvement of her dysphagia, but this has progr essively worsened over the last 6-8 months. Also, of note, she had been diagnosed with H. pylori in the past and was put on antibiotic therapy fo r this condition. She also adds that after the completion of her antibiotics. She underwent testing where she "blew into a tube" for confirmation of eradication. The results of that particular study were negative. REVIEW OF SYSTEMS: A ten category review of systems was obtained with all responses negative except for the pertinent positives as listed in the HPI. PAST MEDICAL HISTORY: As per HPI. PAST SURGICAL HISTORY: Appendectomy, x2, bilateral tubal ligation, EGD with esophageal dil ation in 2017. FAMILY HISTORY: Two maternal aunts were diagnosed with pancreatic cancer in the past. She denies an y other GI malignancies. SOCIAL HISTORY: Denies any tobacco, alcohol or illicit drug use, although she does have a remote his tory of crack cocaine addiction and methamphetamine addiction. OUTPATIENT MEDICATIONS: Reviewed. ALLERGIES: PENICILLIN, SULFA, and CODEINE. PHYSICAL EXAMINATION: VITAL SIGNS: Temperature 97.1, pulse 67, blood pressure 154/86, respiratory rate 17, satting 99% on room air. GENERAL: The patient is lying in bed in no acute distress. Alert and oriented x4. NECK: Supple. No JVD noted. CARDIOVASCULAR: Regular rate and rhythm with no discernible murmurs, gallops or rubs. RESPIRATORY: Clear to auscultation bilaterally with no discernible wheezes or rales. ABDOMEN: Normoactive bowel sounds, soft, nondistended. Tenderness to palpation in the midepigastric and periumbilical regions. EXTREMITIES: No cyanosis, clubbing or edema. LABORATORY DATA: CBC with a white blood cell count of 5.7, hemoglobin 10.6, hematocrit 31.7, platele ts 201. Chemistry with a sodium 140, potassium 3.6, chloride 106, CO2 of 25, BUN 14, creatinine 1, g lucose 189, AST 19, ALT 18, alkaline phosphatase 62, total bilirubin 0.3, INR 1.3. Urinalysis was co nsistent with a urinary tract infection. IMAGING DATA: CT of the abdomen and pelvis was obtained on 12/22/2017 which showed bilateral ovarian cystic lesions, but did not show any evidence of colitis or diverticulitis. ASSESSMENT AND PLAN: The patient is a 47-year-old female with past medical history of hypertension, hyperlipidemia, coronary artery disease, neuropathy, DVTs on chronic anticoagulation, Prinzmetal darian na, hypothyroidism, transient ischemic attack, diastolic congestive heart failure and esophageal stri cture, presenting with complaints of dysphagia and hematochezia. Dysphagia: The patient is presenting with a progressively worsening symptoms of dysphagia characteri zed as a sensation that food is getting stuck at the level of the sternal notch over the last 1.5 yea rs. She had been seen at [facility] in [place] with an EGD showing a distal esophageal stri cture for which she underwent dilation and improvement of her symptoms. However, over the last 6-8 m ont, her symptoms have returned and have been progressively worsening again during this time. At t he current point in time, the most likely etiology for her dysphagia would be recurrence of her esoph ageal stricture. However, with the occurrence of increased coughing and gagging associated with dysp hagia, oropharyngeal dysphagia has not been ruled out at this time. RECOMMENDATIONS: 1. We will proceed with EGD tomorrow for evaluation of the upper GI tract and possible dilation if s tricture is present. 2. Please make the patient n.p.o. at midnight in preparation for the procedure. 3. Given the presence of an esophageal stricture, we will place patient on pantoprazole 40 mg daily for probable acid mediated stricture. Hematochezia: The patient is presenting with intermittent bouts of hematochezia that characterizes s mall amounts of bright red blood per rectum that are present only on the toilet paper and have not be en present in the toilet. She also endorses a history that is consistent with constipation where she will have approximately 1-2 bowel movements per day, but they have been harder in consistency that w ill require increased straining and at times manual disimpaction in order to facilitate defecation. Given this history, the most likely reason for her hematochezia would be hemorrhoidal bleeding with e xacerbation of her hemorrhoids with increased straining and spending prolonged amounts of time on the toilet as due to her constipation. The left lower quadrant abdominal pain that she is presenting wi as well could also be due to increased constipation and difficulty having a bowel movement; davi ramsey, other etiologies that could generate intermittent hematochezia could include stercoral ulcerations AVM/Dieulafoy lesions, colitis and/or possible colonic neoplasm (much less likely). RECOMMENDATIONS: 1. We will plan for colonoscopy tomorrow with GoLYTELY prep tonight in anticipation of the procedure . 2. With GoLYTELY prep it should alleviate symptoms of constipation and in turn should help with her left lower quadrant abdominal pain. 3. Please make patient n.p.o. at midnight in preparation for the procedure. 4. Continue to trend H and H and transfuse as necessary to maintain an H and H of 7/21. 5. Continue to hold any anticoagulation for the time being. We will continue to follow. Please call with any additional questions.
[2017-12-23] MEDS: busPIRone HCl 10 MG TAB PO SCH (21:16)
[2017-12-23] MEDS: Carvedilol 6.25 MG TAB PO SCH (21:16)
[2017-12-23] MEDS ORDERED: Ondansetron ODT 4 MG TAB PO PRN (23:18)
[2017-12-24] MEDS: Sodium Chloride 0.45% 1,000 ML IV SCH ×3 (02:12→12:57)
[2017-12-24] MEDS: Levothyroxine Sodium 25 MCG TAB PO SCH (05:27)
[2017-12-24] MEDS ORDERED: Ondansetron HCl/PF 4 MG/2 ML Vial IVP PRN (08:59)
[2017-12-24] MEDS ORDERED: Promethazine HCl 25 MG/ML VIAL IM PRN (08:59)
[2017-12-24] MEDS ORDERED: Promethazine HCl 25 MG/ML VIAL SLOW IVP PRN (08:59)
--- NOTE | 2017-12-24 09:30 | OP ---
DATE OF PROCEDURE: 12/24/2017 PROCEDURE PERFORMED: Esophagogastroduodenoscopy with biopsies. INDICATION FOR PROCEDURE: Dysphagia. DESCRIPTION OF PROCEDURE: After the risks and benefits of the procedure were explained to the patien t including risks of bleeding, infection, perforation, reaction to anesthesia and/or pain, informed c onsent was obtained. The patient was then taken to the endoscopy suite where deep sedation was admin istered via propofol and anesthesia support. After adequate sedation was achieved, the standard michelle roscope was then introduced into the mouth with intubation of the esophagus, stomach and proximal sma ll intestine with the findings listed below. The patient tolerated the procedure well with no immedi ate perioperative complications. FINDINGS: Esophagus: Normal appearing mucosa was seen in the proximal, mid and distal esophagus. There was no evidence of erosions, ulcerations, mass lesions or active/recent bleeding. Both the diaphragmatic p inch and GE junction were well seen at approximately 37 cm past the incisors. Random biopsies were t aken from both the proximal and distal esophagus for evaluation of possible eosinophilic esophagitis. Stomach: Normal appearing mucosa was seen in the gastric cardia, fundus, body, antrum and incisura. There was no evidence of erosions, ulcerations, mass lesions or active/recent bleeding. Duodenum: Normal appearing mucosa was seen in both the duodenal bulb and second portion of the duode num. There was no evidence of erosions, ulcerations, mass lesions or active/recent bleeding. IMPRESSION: Normal upper endoscopy. RECOMMENDATIONS: 1. We would continue patient on PPI daily for possible nonerosive reflux disease contributing to dys phagia. 2. We would continue to trend H&H and transfuse as necessary to maintain an H&H of 7/21. 3. Continue to monitor for signs of active gastrointestinal bleeding. 4. We will follow up on biopsy results and if positive for eosinophilic esophagitis, the patient is already on initial treatment consisting of PPI. 5. We will defer colonoscopy to the patient's decision. This can be performed as an outpatient. We will continue to follow. Please call with any questions.
[2017-12-24] MEDS: OLANZapine 5 MG TAB PO SCH (09:59)
[2017-12-24] MEDS: Carvedilol 6.25 MG TAB PO SCH ×2 (09:59→21:15)
[2017-12-24] MEDS: Losartan 25 MG TAB PO SCH (09:59)
[2017-12-24] MEDS: Atorvastatin Calcium 10 MG TAB PO SCH (09:59)
[2017-12-24] MEDS: busPIRone HCl 10 MG TAB PO SCH ×2 (09:59→21:15)
[2017-12-24] MEDS: Pantoprazole 40 MG VIAL IVP SCH (10:00)
[2017-12-24] MEDS ORDERED: Magnesium Citrate 300 ML BOT PO SCH (12:45)
[2017-12-24] MEDS: Polyethylene Glycol 3350 17 GM Packet PO SCH ×2 (14:00→21:15)
[2017-12-24] MEDS ORDERED: Magnesium Citrate 300 ML BOT PO PRN (18:00)
[2017-12-25] MEDS: Levothyroxine Sodium 25 MCG TAB PO SCH (05:33)
[2017-12-25] MEDS: Polyethylene Glycol 3350 17 GM Packet PO SCH (05:33)
[2017-12-25 06:38] LABS: #Eosinphils 0.1 thou/uL (0.0-0.7); #Lymphocytes 1.3 thou/uL (1.20-3.40); #Monocytes 0.4 thou/uL (0.11-0.59); #Neutrophils 3.1 thou/uL (1.40-6.50); %Basophils 0.7 % (0.0-1.0); %Eosinophils 1.1 % (0.0-10.0); %Lymphocytes 27.3 % (21.0-51.0); %Monocytes 7.3 % (0.0-10.0); %Neutrophils 63.5 % (42.0-75.0); Hemoglobin 11.3 g/dL (12.0-16.0); Mean Corpuscular HGB CONC 32.9 g/dL (32.0-36.0); Mean Platelet Volume 8.9 fL (7.4-10.4); Platelet Count 225 thou/uL (130-400); RBC Distribution Width 15.3 % (11.5-14.5); Red Blood Cell (RBC) Count 4.37 mill/uL (4.20-5.40); White Blood Cell (WBC) Count 4.9 thou/uL (4.8-10.8)
[2017-12-25 06:58] LABS: ALT (SGPT) 16 U/L (8-55); AST (SGOT) 18 U/L (5-34); Albumin 3.8 g/dL (3.5-5.0); Alkaline Phosphatase 62 U/L (40-150); Anion Gap 10 mmol/L (10-20); BUN (Urea Nitrogen) 7 mg/dL (7.0-18.7); Bilirubin, Total 0.5 mg/dL (0.2-1.2); Calc. Creatinine Clearance 72 mL/min (70-130); Calcium 9.5 mg/dL (7.8-10.44); Carbon Dioxide 29 mmol/L (22-29); Chloride 108 mmol/L (98-107); Estimated GFR-MDRD 63; Globulin 3.3 g/dL (2.4-3.5); Glucose 188 mg/dL (70-105); Potassium 3.8 mmol/L (3.5-5.1); Protein, Total 7.1 g/dL (6.0-8.3); Sodium 143 mmol/L (136-145)
[2017-12-25 07:50] VITALS: TEMP 98.6
[2017-12-25] MEDS ORDERED: Promethazine HCl 25 MG/ML VIAL IM PRN (09:33)
[2017-12-25] MEDS ORDERED: Ondansetron HCl/PF 4 MG/2 ML Vial IVP PRN (09:33)
[2017-12-25] MEDS ORDERED: Promethazine HCl 25 MG/ML VIAL SLOW IVP PRN (09:33)
--- NOTE | 2017-12-25 10:35 | OP ---
DATE OF PROCEDURE: 12/25/2017 PROCEDURE: Colonoscopy (diagnostic). INDICATION FOR PROCEDURE: Hematochezia. DESCRIPTION OF PROCEDURE: After the risks and benefits of the procedure were explained to the patien t including risks of bleeding, infection, perforation, reaction to anesthesia and/or pain, informed c onsent was obtained. The patient was then taken to the endoscopy suite where deep sedation was admin istered via propofol and anesthesia support. Once adequate anesthesia was achieved, a digital rectal examination was performed followed by insertion of the standard colonoscope into the rectum and adva nced all the way to the terminal ileum without difficulty. The quality of the prep was excellent. T he patient tolerated the procedure well with no immediate perioperative complications and findings li sted below. FINDINGS: Digital rectal exam; small external hemorrhoids were noted on external examination. COLON FINDINGS: Normal appearing mucosa was seen in the terminal ileum. Normal appearing mucosa was also seen in the cecum as well as the appendiceal orifice and ileocecal valve. Normal appearing muc chai was seen in the ascending colon, transverse colon, descending colon, sigmoid colon, and rectum wi thout any abnormalities seen. No abnormalities. Mild increased hyperemia was seen at the anal orifi ce on rectal retroflexion, but no overt hemorrhoidal tissue was seen during this portion of the exami nation. IMPRESSION: 1. Small external hemorrhoids and increased mucosal hyperemia within the anal canal consistent with recent intermittent hematochezia, most likely due to constipation. 2. No etiology for abdominal pain was seen during this examination. RECOMMENDATIONS: 1. Would recommend a higher fiber diet to facilitate passage of stool. 2. Would consider maintenance bowel regimen at home consisting of MiraLax 1 capful daily for constip ation given presence of hemorrhoids. 3. Continue to monitor for improvement in her abdominal pain. 4. Can restart anticoagulation on this patient as soon as possible given lack of active bleeding see n on both the upper and lower endoscopies. We will sign off at this time. Please have the patient follow up in the GI Clinic in 3 weeks for fur ther evaluation and management of chronic constipation and abdominal pain.
[2017-12-25] MEDS: OLANZapine 5 MG TAB PO SCH (11:25)
[2017-12-25] MEDS: Losartan 25 MG TAB PO SCH (11:26)
[2017-12-25] MEDS: Pantoprazole 40 MG VIAL IVP SCH (11:26)
[2017-12-25] MEDS: busPIRone HCl 10 MG TAB PO SCH (11:26)
[2017-12-25] MEDS: Carvedilol 6.25 MG TAB PO SCH (11:27)
[2017-12-25] MEDS: Atorvastatin Calcium 10 MG TAB PO SCH (11:27)
[2017-12-25 11:28] VITALS: BP 120/78
--- NOTE | 2017-12-25 13:19 | DIS ---
DATE OF ADMISSION: 12/23/2017 DATE OF DISCHARGE: 12/25/2017 CHIEF COMPLAINT: Blood in stool. HISTORY OF PRESENT ILLNESS: Patient taking a blood thinner secondary to DVT has only had one DVT in the past, was approximately 2 years ago reporting some lower quadrant abdominal pain. CT abdomen and pelvis showed no signs of diverticulitis, ovarian cyst, left 4 cm and right 3.5 cm. Patient was adm itted for observation. GI was consulted. Dr. Mccrary performed upper and lower endoscopy. Pathology specimen of upper segment pending for biopsy results. Lower endoscopy showing hemorrhoids without ot her significant findings. Gastroenterology recommending 40 mg proton pump inhibitor. The patient wa s taking 20 mg of proton pump inhibitor on an outpatient basis as well as MiraLax daily to resolve an y potential constipation causing bleeding and hemorrhoids, discontinue blood thinner. Given patient' s history and timing of less blood clot, we will completely discontinue and discuss aspirin therapy a nd followup in clinic. At this point in time, we will not continue aspirin or blood thinners. Eileen smith is a diabetic. Her blood sugars remained controlled throughout. The patient tolerated oral intak e, ambulated and used the restroom prior to discharge. DIAGNOSES: Include gastrointestinal bleed, history of blood clot, deep venous thrombosis, ovarian cy st, hemorrhoids, type 2 diabetes. DISCHARGE INSTRUCTIONS: Discharge followup with myself, Dr. Rashaun Walters in 7-10 days. Follow up with Gastroenterology, Dr. Mccrary in 3-4 weeks. DISCHARGE MEDICATIONS: Include omeprazole increased to 40 mg daily, MiraLax 1 packet daily, up to 3 packets p.r.n. constipation, discontinuation of the patient's home Eliquis. Other home medications include resuming olanzapine 5 mg, losartan 100 mg, Victoza 1.8 units daily, le vothyroxine 50 mcg, insulin glargine 50 units at bedtime, gabapentin 600 mg t.i.d. New medications: Ferrous sulfate 325 mg b.i.d. Resume Coreg 6.25 mg, Lipitor 40 mg once daily, albu terol 90 mcg 2 puffs inhalation p.r.n. cough and wheeze. Patient's discharge hemoglobin was 11.3. DISCHARGE DIET: Diabetic. DISCHARGE CONDITION: Good.
[2017-12-25] MEDS ORDERED: PROPOFOL 200 MG/20 ML VIAL ONE ×2 (13:58→14:19)
[2017-12-25] MEDS ORDERED: Lidocaine 1% PF 5 ML VIAL ONE ×2 (13:58→14:19)
== END 2017-12-25 15:29 | disposition home or self-care (01) | DRG 379 ==
LOC: ERS 23:07 → 2NO 12-23 01:40
PROVIDERS: ADMIT Family Medicine; ATTEND Family Medicine
PROC: 0DB38ZX Excision of Lower Esophagus, Via Natural or Artificial Opening Endoscopic, Diagnostic (ICD-10-PCS; principal; 2017-12-24)
PROC: 0DB18ZX Excision of Upper Esophagus, Via Natural or Artificial Opening Endoscopic, Diagnostic (ICD-10-PCS; 2017-12-24)
PROC: 0DJD8ZZ Inspection of Lower Intestinal Tract, Via Natural or Artificial Opening Endoscopic (ICD-10-PCS; 2017-12-24)
DX: K92.2 Gastrointestinal hemorrhage, unspecified (principal); E11.9 Type 2 diabetes mellitus without complications; K64.4 Residual hemorrhoidal skin tags; Z86.718 Personal history of other venous thrombosis and embolism; Z79.01 Long term (current) use of anticoagulants; Z79.4 Long term (current) use of insulin
CPT/HCPCS: 36415; 36416; 74177; 80053; 82274; 84703; 85025; 86850; 86900; 86901; 87328; 87329; 88305; 88312; 88313; 96374; A4216; C9113; J2001; J2270; J2704; Q0162

== ENCOUNTER 2018-02-25 19:05 | Emergency (ER) | payer OTHER ==
[2018-02-25 19:22] LABS: #Monocytes 0.4 thou/uL (0.11-0.59); #Neutrophils 4.6 thou/uL (1.40-6.50); %Basophils 0.3 % (0.0-1.0); %Eosinophils 0.3 % (0.0-10.0); %Monocytes 6.2 % (0.0-10.0); %Neutrophils 65.1 % (42.0-75.0); Hemoglobin 11.5 g/dL (12.0-16.0); Mean Corpuscular HGB CONC 33.3 g/dL (32.0-36.0); Mean Corpuscular Hemoglobin 25.5 pg (27.0-31.0); Mean Corpuscular Volume 76.8 fL (78.0-98.0); Platelet Count 223 thou/uL (130-400); RBC Distribution Width 14.2 % (11.5-14.5)
[2018-02-25 19:44] LABS: ALT (SGPT) 21 U/L (8-55); AST (SGOT) 21 U/L (5-34); Albumin 4.1 g/dL (3.5-5.0); Alkaline Phosphatase 68 U/L (40-150); Anion Gap 14 mmol/L (10-20); BUN (Urea Nitrogen) 9 mg/dL (7.0-18.7); Bilirubin, Total 0.4 mg/dL (0.2-1.2); Calc. Creatinine Clearance 0 mL/min (70-130); Calcium 9.7 mg/dL (7.8-10.44); Carbon Dioxide 22 mmol/L (22-29); Chloride 105 mmol/L (98-107); Estimated GFR-MDRD 75; Globulin 3.4 g/dL (2.4-3.5); Glucose 188 mg/dL (70-105); Potassium 3.1 mmol/L (3.5-5.1); Protein, Total 7.5 g/dL (6.0-8.3); Sodium 138 mmol/L (136-145)
[2018-02-25 19:49] LABS: CKMB 2.4 ng/mL (0-6.6); Troponin I Less than 0.010 ng/mL (< 0.028)
--- NOTE | 2018-02-25 20:29 | RAD ---
RADIOGRAPH CHEST 1 VIEW: HISTORY: A 47-year-old female with chest pain. FINDINGS: There is no air space density, pulmonary edema, or pneumothorax. The lateral costophrenic angles are sharp. IMPRESSION: No acute pulmonary findings. jn [] POS: [facility]
--- NOTE | 2018-02-25 23:33 | ULT ---
BILATERAL LOWER EXTREMITY VENOUS DOPPLER DUPLEX ULTRASOUND: CPT: 34902 ICD-10-PCS: B54D INDICATIONS: Lower extremity pain. History of DVT. TECHNIQUE: Color flow Doppler, spectral waveform analysis of pulsed Doppler, and omer-scale imaging with ramon michelle and augmentation were used to evaluate the bilateral common femoral, femoral, popliteal, posteri or tibial, and superficial femoral veins; and the proximal portions of the profunda femoral and great er saphenous veins. FINDINGS: Appropriate compressibility and flow within the imaged deep venous system of the imaged bilateral low er extremities. IMPRESSION: No deep venous thrombosis identified within either visualized lower extremity. POS: [facility]
== END 2018-02-26 01:00 | disposition home or self-care (01) ==
LOC: ERS 19:05
DX: R20.2 Paresthesia of skin (principal); F31.9 Bipolar disorder, unspecified; E78.5 Hyperlipidemia, unspecified; I10 Essential (primary) hypertension; E11.9 Type 2 diabetes mellitus without complications; Z86.718 Personal history of other venous thrombosis and embolism; Z79.4 Long term (current) use of insulin; Z79.899 Other long term (current) drug therapy
CPT/HCPCS: 71045; 80053; 82553; 84484; 85025; 85379; 93005; 93970

== ENCOUNTER 2018-03-09 12:01 | Observation (INO) | payer OTHER ==
[2018-03-09] MEDS ORDERED: Nitroglycerin 2% Ointment 1 INCH/1 GM Packet ONE ×2 (12:18→12:22)
[2018-03-09] MEDS ORDERED: Nitroglycerin 0.4 MG TAB (25 Tab Bottle) ONE (12:24)
--- NOTE | 2018-03-09 13:26 | RAD ---
CHEST TWO VIEWS: INDICATIONS: Chest pain, new onset. FINDINGS: The lungs are clear. There is no effusion or pneumothorax. The cardiac silhouette is stable. There is excreted contrast of the kidneys and proximal ureters bilaterally. IMPRESSION: Stable chest. POS: [facility]
--- NOTE | 2018-03-09 13:29 | CT ---
CT PULMONARY ANGIOGRAM WITH IV CONTRAST AND 3D POST PROCESSING: HISTORY: Chest pain. FINDINGS: There is good contrast opacification of the pulmonary arterial vasculature without filling defects to suggest pulmonary embolism. No thoracic aortic aneurysm or dissection is seen. No pleural or peric ardial effusions are identified. No pneumothoraces, lobar consolidation, or lung masses are noted. IMPRESSION: No CT evidence of pulmonary embolism. POS: [facility]
[2018-03-09 13:43] LABS: #Lymphocytes 1.4 thou/uL (1.20-3.40); #Monocytes 0.3 thou/uL (0.11-0.59); #Neutrophils 2.2 thou/uL (1.40-6.50); %Eosinophils 0.5 % (0.0-10.0); %Lymphocytes 35.4 % (21.0-51.0); %Monocytes 7.9 % (0.0-10.0); %Neutrophils 56.1 % (42.0-75.0); Hemoglobin 10.3 g/dL (12.0-16.0); Mean Corpuscular HGB CONC 31.8 g/dL (32.0-36.0); Mean Corpuscular Hemoglobin 24.9 pg (27.0-31.0); Mean Corpuscular Volume 78.2 fL (78.0-98.0); Mean Platelet Volume 9.3 fL (7.4-10.4); Platelet Count 216 thou/uL (130-400); Red Blood Cell (RBC) Count 4.14 mill/uL (4.20-5.40)
[2018-03-09 14:06] LABS: ALT (SGPT) 20 U/L (8-55); AST (SGOT) 23 U/L (5-34); Albumin 3.7 g/dL (3.5-5.0); Alkaline Phosphatase 65 U/L (40-150); Anion Gap 8 mmol/L (10-20); BUN (Urea Nitrogen) 8 mg/dL (7.0-18.7); Bilirubin, Total 0.4 mg/dL (0.2-1.2); CK (CPK) 195 U/L (29-168); Calc. Creatinine Clearance 0 mL/min (70-130); Carbon Dioxide 30 mmol/L (22-29); Chloride 104 mmol/L (98-107); Estimated GFR-MDRD 77; Globulin 3.3 g/dL (2.4-3.5); Glucose 201 mg/dL (70-105); Lipase 51 U/L (8-78); Potassium 3.1 mmol/L (3.5-5.1); Sodium 139 mmol/L (136-145)
[2018-03-09 14:12] LABS: Troponin I Less than 0.010 ng/mL (< 0.028)
[2018-03-09] MEDS ORDERED: Enoxaparin Sodium 60 MG/0.6 ML SYRINGE ONE (16:01)
[2018-03-09 17:22] LABS: Troponin I Less than 0.010 ng/mL (< 0.028)
[2018-03-09] MEDS ORDERED: HumaLOG 300 UNITS/3 ML VIAL SC PRN (17:36)
[2018-03-09] MEDS ORDERED: Dextrose 5% in Water 1,000 ML IV PRN (17:36)
[2018-03-09] MEDS ORDERED: Dextrose 50% Abboject 50 ML SYRINGE SLOW IVP PRN (17:36)
[2018-03-09] MEDS ORDERED: PROVENTIL INHALER 6.7 G (200 INHALATIONS) INH PRN (17:36)
[2018-03-09] MEDS ORDERED: Acetaminophen 325 MG TAB PO PRN (17:36)
[2018-03-09] MEDS ORDERED: Potassium Chloride 40 MEQ in Premix Bag 1 BAG IVPB SCH (17:45)
[2018-03-09] MEDS ORDERED: Potassium Chloride 40 MEQ in Sodium Chloride 0.9% 500 ML IVPB ONE (18:00)
[2018-03-09 18:16] VITALS: BMI 24.7
[2018-03-09] MEDS ORDERED: Phenergan/Codeine 10-6.25mg/5ml UDCUP PO PRN (18:22)
[2018-03-09] MEDS ORDERED: Ondansetron ODT 4 MG TAB PO PRN (18:22)
[2018-03-09] MEDS ORDERED: Benzonatate 100 MG CAP PO PRN (18:22)
[2018-03-09] MEDS ORDERED: Mag-Al 1200 mg/1200 mg/30 ML UDCUP PO PRN (18:22)
[2018-03-09] MEDS ORDERED: hydrOXYzine Pamoate 25 mg Capsule PO PRN (18:22)
[2018-03-09] MEDS ORDERED: Ondansetron HCl/PF 4 MG/2 ML Vial IVP PRN (18:22)
[2018-03-09] MEDS ORDERED: Promethazine 25 MG TAB PO PRN (18:22)
[2018-03-09 20:23] LABS: Troponin I Less than 0.010 ng/mL (< 0.028)
[2018-03-09] MEDS ORDERED: Losartan 25 MG TAB PO SCH (21:00)
[2018-03-09] MEDS ORDERED: OLANZapine 5 MG TAB PO SCH (21:00)
[2018-03-09] MEDS ORDERED: Atorvastatin Calcium 40 MG TAB PO SCH (21:00)
[2018-03-09] MEDS: Gabapentin 300 MG CAP PO SCH (21:09)
[2018-03-09] MEDS: Carvedilol 6.25 MG TAB PO SCH (21:09)
--- NOTE | 2018-03-09 21:39 | HP ---
DATE OF ADMISSION: 03/09/2018 CHIEF COMPLAINT: Chest pain and shortness of breath. HISTORY OF PRESENT ILLNESS: The patient states she has had cough with diarrhea for the last 2 days. No sputum production. The patient has been using her albuterol rescue inhaler slightly more than normal. She is compliant with her insulin regarding her diabetes status, has prominent paresthesias and neuropathy of bilateral lower extremities. She is continued on her gabapentin for this. The patient has not had formal fevers. She does feel some shortness of breath generalized, not worsened by lying down or with activity. Chest pain is generalized, not radiating to the neck or shoulder, worse with deep breathing and cough. The patient has a history of DVT and PE, however, also has a history of lower GI bleed while on Eliquis. She only had one DVT, PE in the past, was titrated off Eliquis, failed to get outpatient followup following hospitalization for her lower GI bleed and did not get hypercoagulability panel last visit. The patient did receive Lovenox in the emergency room. She denies any blood in her diarrhea and is not having any emesis currently, keeping down liquids and solids currently. FORMAL REVIEW OF SYSTEMS: No fever, no chills. Positive fatigue. No nasal congestion. No sore throat. Positive cough. No sputum production. Positive shortness of breath. Positive pleuritic chest pain. Positive nausea. No abdomen pain. Positive diarrhea. No blood in stools. No bleeding or bruising otherwise reported. The patient is without headache or confusion. No dysuria. LABORATORY WORK: White blood cell count of 4.0, hemoglobin of 10.3, platelet count of 216,000. Troponins x2 less than 0.01, CK-MB 3.0. Sodium of 139, potassium of 3.1, chloride of 104, CO2 of 30, creatinine of 0.8, glucose of 201 , calcium of 9.0, AST of 23, ALT of 20, albumin of 3.7, lipase of 51. IMAGING: Review of chest CT on this examination, no pulmonary emboli. Chest x- ray, no cardiopulmonary events. PAST MEDICAL, SOCIAL AND SURGICAL HISTORY: Includes diabetes type 2, CVA, history of PE, DVT, bipolar disorder, gastroesophageal reflux disease, history of H. pylori infection, mild diastolic congestive heart failure, preserved ejection fraction of 60%-65% on last echo on 03/2017. Carotids normal 03/2017. Stress test normal 09/2016, has been followed previously by Dr. Kilgore on an outpatient basis. History of crack cocaine, methamphetamine use, clean and sober for many years. Prior appendectomy, C-sections x2, bilateral tubal ligation, esophageal dilation in 2017 with Liss[facility]. The patient has since seen Dr. Mccrary of [facility]. Social history includes , 2 living children. The patient with diabetic neuropathy. PHYSICAL EXAMINATION: VITAL SIGNS: Temperature of 97.8 on arrival to floor, pulse of 69, respiratory rate of 16, oxygen saturation of 95% on room air. GENERAL: The patient is alert and oriented, in no acute distress. HEENT: Head is normocephalic, atraumatic. Extraocular movements are intact. Sclerae are clear. Oral mucosa is moist. No ulcerations. LUNGS: Clear to auscultation bilaterally. No rubs or wheezes. HEART: Regular rate and rhythm. No murmurs were auscultated. ABDOMEN: Soft, nontender. Positive bowel sounds throughout. EXTREMITIES: Lower extremities without cyanosis or edema. Negative Homans sign. Negative palpable cord. No edema, swelling or tenderness to the calves bilaterally. Normal caliber. The patient with light touch pain to quadriceps bilaterally above, which is her baseline in her neuropathy. NEUROLOGIC: The patient is alert and oriented x3, no focal deficits. Speech is normal. The patient's affect is flat, slightly anxious. Thought process is normal. ASSESSMENT AND PLAN: Chest pain, rule out myocardial infarction. Viral pattern possibly adenovirus. Gastroesophageal reflux disease, hypothyroidism, bipolar, hypokalemia, history of deep venous thrombosis, lower gastrointestinal bleed. Trending troponins first 2 times are negative/normal. We will follow up third one. Was given morphine, nitrogen, oxygen and Lovenox in the emergency department, normally sustained on 325 mg aspirin on an outpatient basis. We will hold these for hypercoagulable panel in the morning as long as third troponin is negative. Otherwise, we will restart therapeutic Lovenox and aspirin therapy. The patient's home medications including beta melida, TOMMIE inhibitor and statin will be continued regarding her history of gastrointestinal bleed. Continuing proton pump inhibitor. Moving patient to SCD venous thrombosis prophylaxis. We will attempt to get stress test in the morning as her last stress test was 18 months ago. Given her diabetes and neuropathy, it will be not unreasonable to recheck. If no signs or symptoms of chest pain continue other than the patient's gabapentin, we will not escalate treatment as the patient's chest pain is noncardiac, shortness of breath is noncardiac in nature. We will follow up with the patient's TSH, A1c in the morning. Continue on sliding scale insulin and the patient's home Lantus regarding her diabetes. Recheck potassium in the morning regarding hypokalemia. Replace with potassium chloride 40 mEq IV x1. Check upon magnesium in the morning. MTDD
[2018-03-10 05:39] LABS: #Eosinphils 0.1 thou/uL (0.0-0.7); #Lymphocytes 1.8 thou/uL (1.20-3.40); #Monocytes 0.3 thou/uL (0.11-0.59); #Neutrophils 1.8 thou/uL (1.40-6.50); %Basophils 0.2 % (0.0-1.0); %Eosinophils 1.6 % (0.0-10.0); %Lymphocytes 44.7 % (21.0-51.0); %Monocytes 8.7 % (0.0-10.0); %Neutrophils 44.8 % (42.0-75.0); Hemoglobin 10.2 g/dL (12.0-16.0); Mean Corpuscular HGB CONC 33.1 g/dL (32.0-36.0); Mean Corpuscular Hemoglobin 25.6 pg (27.0-31.0); Mean Corpuscular Volume 77.6 fL (78.0-98.0); Platelet Count 213 thou/uL (130-400); RBC Distribution Width 14.9 % (11.5-14.5); Red Blood Cell (RBC) Count 3.98 mill/uL (4.20-5.40); White Blood Cell (WBC) Count 3.9 thou/uL (4.8-10.8)
[2018-03-10 05:51] LABS: Hemoglobin A1c 8.7 % (4.0-6.0)
[2018-03-10] MEDS ORDERED: Levothyroxine Sodium 50 MCG TAB PO SCH (06:00)
[2018-03-10 06:08] LABS: ALT (SGPT) 20 U/L (8-55); AST (SGOT) 20 U/L (5-34); Albumin 3.4 g/dL (3.5-5.0); Alkaline Phosphatase 58 U/L (40-150); Anion Gap 9 mmol/L (10-20); BUN (Urea Nitrogen) 7 mg/dL (7.0-18.7); Bilirubin, Total 0.2 mg/dL (0.2-1.2); Calc. Creatinine Clearance 97 mL/min (70-130); Calcium 8.7 mg/dL (7.8-10.44); Carbon Dioxide 26 mmol/L (22-29); Chloride 109 mmol/L (98-107); Estimated GFR-MDRD 86; Globulin 3.1 g/dL (2.4-3.5); Glucose 160 mg/dL (70-105); Magnesium 1.9 mg/dL (1.6-2.6); Potassium 3.3 mmol/L (3.5-5.1); Protein, Total 6.5 g/dL (6.0-8.3); Sodium 141 mmol/L (136-145)
[2018-03-10 06:26] LABS: Free T4 (Free Thyroxine) 0.85 ng/dL (0.70-1.48); Thyroid Stimulating Hormone 4.9335 uIU/mL (0.35-4.94)
[2018-03-10 07:09] LABS: PTT 28.6 SEC (22.9-36.1); Prothrombin Time 13.5 SEC (12.0-14.7)
[2018-03-10] MEDS ORDERED: Regadenoson 0.4 MG/5 ML SYRINGE ONE (08:03)
[2018-03-10] MEDS ORDERED: Insulin Glargine 50 UNITS in Pre-Filled Syringe SC SCH (09:00)
[2018-03-10] MEDS ORDERED: Non-Formulary Item 1 EACH (Insulin Glargine,Hum.Rec.Anlog [Lantus Solostar] 50 UNITS) SC SCH (09:00)
[2018-03-10] MEDS: Carvedilol 6.25 MG TAB PO SCH (12:36)
[2018-03-10] MEDS: Gabapentin 300 MG CAP PO SCH ×2 (12:36→15:05)
[2018-03-10] MEDS ORDERED: cloNIDine 0.1 MG TAB PO PRN (13:17)
--- NOTE | 2018-03-10 14:52 | NM ---
MYOCARDIAL PERFUSION AND QUANTITATED GATED SPECT STUDY: Date: 03/10/18 HISTORY: Chest pain. TECHNIQUE: Dose: 32 mCi of technetium-99m Cardiolite for the stress portion of exam and 10.5 mCi of technetium -99m Cardiolite for the resting portion of the exam. The patient was stressed using 0.4 mg of Lexisca n. FINDINGS: Myocardial perfusion study was performed. No definite evidence of myocardial ischemia or scar seen. N o evidence of reversible defects seen. Ejection fraction measures 73%. IMPRESSION: Normal myocardial perfusion and quantitated gated SPECT study without evidence of myocardial ischemia or scar seen. POS: VIRIDIANA
[2018-03-10 15:35] VITALS: BP 126/70; TEMP 98.3
--- NOTE | 2018-03-10 22:24 | DIS ---
DATE OF ADMISSION: 03/09/2018 DATE OF DISCHARGE: 03/10/2018 PRIMARY CARE PHYSICIAN: Rashaun Walters MD ADMISSION DIAGNOSIS: Atypical chest pain, rule out myocardial infarction. DISCHARGE DIAGNOSES: 1. Atypical chest pain, resolved. 2. Viral syndrome. 3. History of deep venous thrombosis and pulmonary embolism. 4. History of gastrointestinal bleed. 5. History of bipolar depression. 6. History crack cocaine, methamphetamine use. CONSULTATIONS: None. PROCEDURES: 1. Telemetry monitoring. 2. Rule out OR protocol. 3. Cardiolite stress test. 4. CT angiogram of the chest. HOSPITAL COURSE: This is a 47-year-old female patient with multiple medical problems, who presented to the emergency department with onset of chest pain. She does note that she has had a cough and vir al symptoms for the past 2-3 days. She admits to body aches, but no fevers, some shortness of breath , but not worse with activity. She does have a history of DVT and PE in the past with a resultant GI bleed while on Eliquis. She presented to the emergency department. She had a CT angiogram, which w as negative for pulmonary embolism; a chest x-ray, which was normal; cardiac enzymes ended up being n egative x3. She did undergo a Cardiolite stress test, which was normal. The patient was pain free, more comfortable. She continued to have some fatigue and some cough, but that improved with the oral cough medicines and she was stable for discharge home. DISCHARGE PHYSICAL EXAMINATION: VITAL SIGNS: Temperature 98.3, pulse of 51-75, respirations 15, blood pressure 126/70, pulse ox is 9 6% on room air. GENERAL: She is awake and alert, in no acute distress. She does have a flat affect, and in bed. HEENT: Mucosa is moist. NECK: Supple. HEART: Regular rate and rhythm. LUNGS: Clear bilaterally. ABDOMEN: Soft, some epigastric tenderness, no rebound, no guarding. EXTREMITIES: No clubbing, cyanosis, or edema. NEUROLOGIC: Cranial nerves II-XII are grossly intact. LABORATORY DATA: White blood cell count 3,900, hemoglobin and hematocrit 10.2 and 30.9, platelets of 213. Hypercoagulable workup is in progress. PT and PTT were normal. Others are pending. Sodium 1 41, potassium 3.3, chloride 109, CO2 of 26, BUN and creatinine 7 and 0.73 with a GFR of 86. Serum gl ucose was 160. Accu-Cheks were 112, 225, 150 with a hemoglobin A1c this morning of 8.7, magnesium wa s 1.9. Liver enzymes were normal. Again, cardiac enzymes were negative x3. Thyroid function was st able. Again, chest x-ray showed no active disease. CT angiogram of the chest showed no pulmonary em bolism and a nuclear stress test showed no evidence of reversible ischemia. DISCHARGE MEDICATIONS: Include, 1. Tylenol p.r.n. 2. Maalox p.r.n. 3. Proventil 2 puffs q.4 hours p.r.n. 4. Lipitor 40 mg daily. 5. Tessalon Perles 200 mg t.i.d. p.r.n. cough. 6. Carvedilol 6.25 mg b.i.d. 7. Clonidine p.r.n. 8. Neurontin 600 mg t.i.d. 9. Vistaril p.r.n. itching. 10. Insulin glargine 50 units daily. 11. Synthroid 50 mcg daily. 12. Cozaar 50 mg daily. 13. Olanzapine 5 mg daily. 14. Protonix 40 mg daily. 15. Victoza daily. FOLLOWUP INSTRUCTIONS: Patient to follow up with Dr. Walters in 1-2 weeks.
[2018-03-14 15:48] LABS: Protein C Activity 99 % (78-152)
[2018-03-14 15:50] LABS: Factor VIII Test 381.4 % ACTIVE (56-157)
[2018-03-14 16:44] LABS: Cardiolipin IgA Ab 1.3 APL-U/mL (<14 Negative); Cardiolipin IgG Ab 1.2 GPL-U/mL (<10 Negative); Cardiolipin IgM Ab 1.7 MPL-U/mL (<10 Negative); EliA APS New Method **** NEW METHOD ****
[2018-03-15 12:53] LABS: HEX PHOS LA Tube 1 51.7 SEC; HEX PHOS LA Tube 2 51.7 SEC
== END 2018-03-10 18:48 | disposition home or self-care (01) ==
LOC: ERS 12:01 → 2SW 15:07
PROVIDERS: ADMIT Family Medicine; ATTEND Family Medicine
DX: R07.89 Other chest pain (principal); R06.02 Shortness of breath; R05 Cough; R19.7 Diarrhea, unspecified; E11.40 Type 2 diabetes mellitus with diabetic neuropathy, unspecified; F31.9 Bipolar disorder, unspecified; K21.9 Gastro-esophageal reflux disease without esophagitis; I50.30 Unspecified diastolic (congestive) heart failure; E03.9 Hypothyroidism, unspecified; Z86.711 Personal history of pulmonary embolism; Z86.718 Personal history of other venous thrombosis and embolism; Z86.73 Personal history of transient ischemic attack (TIA), and cerebral infarction without residual deficits; Z79.4 Long term (current) use of insulin; Z79.899 Other long term (current) drug therapy; Z88.0 Allergy status to penicillin; Z88.2 Allergy status to sulfonamides; Z88.5 Allergy status to narcotic agent
CPT/HCPCS: 36415; 36416; 71046; 71275; 78452; 80053; 81240; 81241; 82553; 83036; 83090; 83690; 83735; 84439; 84443; 84481; 84484; 85025; 85240; 85300; 85303; 85305; 85307; 85379; 85598; 85610; 85730; 86147; 93005; 93017; 96365; 96366; 96372; 96374; 96375; A9500; G0378; J1650; J2270; J2785; J3480; J7050

== ENCOUNTER 2018-07-28 11:11 | Emergency (ER) | payer OTHER ==
[2018-07-28] MEDS ORDERED: Meclizine HCl 25 MG TAB ONE (12:12)
[2018-07-28 12:22] LABS: #Eosinphils 0.1 thou/uL (0.0-0.7); #Lymphocytes 1.5 thou/uL (1.20-3.40); #Monocytes 0.3 thou/uL (0.11-0.59); #Neutrophils 2.9 thou/uL (1.40-6.50); %Basophils 0.8 % (0.0-1.0); %Eosinophils 1.6 % (0.0-10.0); %Lymphocytes 30.2 % (21.0-51.0); %Monocytes 7.1 % (0.0-10.0); %Neutrophils 60.4 % (42.0-75.0); Hemoglobin 12.3 g/dL (12.0-16.0); Mean Corpuscular HGB CONC 32.4 g/dL (32.0-36.0); Mean Corpuscular Hemoglobin 24.8 pg (27.0-31.0); Mean Corpuscular Volume 76.5 fL (78.0-98.0); Mean Platelet Volume 9.7 fL (7.4-10.4); Platelet Count 235 thou/uL (130-400); RBC Distribution Width 14.6 % (11.5-14.5); Red Blood Cell (RBC) Count 4.96 mill/uL (4.20-5.40); White Blood Cell (WBC) Count 4.8 thou/uL (4.8-10.8)
[2018-07-28 12:35] LABS: ALT (SGPT) 22 U/L (8-55); AST (SGOT) 24 U/L (5-34); Albumin 3.9 g/dL (3.5-5.0); Alkaline Phosphatase 68 U/L (40-150); Anion Gap 13 mmol/L (10-20); BUN (Urea Nitrogen) 11 mg/dL (7.0-18.7); Bilirubin, Total 0.5 mg/dL (0.2-1.2); Calc. Creatinine Clearance 0 mL/min (70-130); Calcium 9.5 mg/dL (7.8-10.44); Carbon Dioxide 24 mmol/L (22-29); Chloride 107 mmol/L (98-107); Estimated GFR-MDRD 75; Globulin 3.9 g/dL (2.4-3.5); Glucose 124 mg/dL (70-105); Potassium 3.7 mmol/L (3.5-5.1); Protein, Total 7.8 g/dL (6.0-8.3); Sodium 140 mmol/L (136-145)
[2018-07-28 12:55] LABS: Bilirubin Negative (Negative); Blood, Urine Negative (Negative); Clarity CLEAR (Clear); Glucose, Urine (Dipstick) >=1000 mg/dL (Negative); Leukocyte Negative (Negative); Nitrite Negative (Negative); Protein, Urine (Dipstick) Negative (Neg-Trace); Specific Gravity, Urine 1.032 (1.002-1.036); Urobilinogen 0.2 mg/dL (0.2-1.0)
== END 2018-07-28 16:35 | disposition home or self-care (01) ==
LOC: ERS 11:11
DX: R81 Glycosuria (principal); R42 Dizziness and giddiness; E78.5 Hyperlipidemia, unspecified; I10 Essential (primary) hypertension; E11.9 Type 2 diabetes mellitus without complications; Z79.4 Long term (current) use of insulin; Z79.899 Other long term (current) drug therapy
CPT/HCPCS: 36415; 36416; 80053; 81003; 85025; 93005

== ENCOUNTER 2018-08-17 12:40 | Emergency (ER) | payer OTHER ==
[2018-08-17] MEDS ORDERED: diphenhydrAMINE 50 MG/ML VIAL ONE (13:30)
[2018-08-17] MEDS ORDERED: Ketorolac Tromethamine 30 MG/ML VIAL ONE (13:30)
[2018-08-17] MEDS ORDERED: Metoclopramide HCl 10 MG/2 ML VIAL ONE (13:30)
[2018-08-17 13:48] LABS: #Lymphocytes 0.9 thou/uL (1.20-3.40); #Monocytes 0.3 thou/uL (0.11-0.59); #Neutrophils 6.2 thou/uL (1.40-6.50); %Basophils 0.6 % (0.0-1.0); %Eosinophils 0.3 % (0.0-10.0); %Lymphocytes 11.6 % (21.0-51.0); %Monocytes 4.1 % (0.0-10.0); %Neutrophils 83.5 % (42.0-75.0); Hemoglobin 12.1 g/dL (12.0-16.0); Mean Corpuscular HGB CONC 31.5 g/dL (32.0-36.0); Mean Corpuscular Hemoglobin 24.7 pg (27.0-31.0); Mean Corpuscular Volume 78.4 fL (78.0-98.0); Mean Platelet Volume 9.6 fL (7.4-10.4); Platelet Count 239 thou/uL (130-400); RBC Distribution Width 14.9 % (11.5-14.5); White Blood Cell (WBC) Count 7.5 thou/uL (4.8-10.8)
[2018-08-17 14:15] LABS: ALT (SGPT) 20 U/L (8-55); AST (SGOT) 21 U/L (5-34); Albumin 3.9 g/dL (3.5-5.0); Alkaline Phosphatase 70 U/L (40-150); Anion Gap 10 mmol/L (10-20); BUN (Urea Nitrogen) 12 mg/dL (7.0-18.7); Bilirubin, Total 0.4 mg/dL (0.2-1.2); Calc. Creatinine Clearance 0 mL/min (70-130); Calcium 9.4 mg/dL (7.8-10.44); Carbon Dioxide 28 mmol/L (22-29); Chloride 106 mmol/L (98-107); Estimated GFR-MDRD 73; Globulin 3.5 g/dL (2.4-3.5); Glucose 150 mg/dL (70-105); Potassium 3.6 mmol/L (3.5-5.1); Protein, Total 7.4 g/dL (6.0-8.3); Sodium 140 mmol/L (136-145)
== END 2018-08-17 15:35 | disposition home or self-care (01) ==
LOC: ERS 12:40
DX: T42.6X1A Poisoning by other antiepileptic and sedative-hypnotic drugs, accidental (unintentional), initial encounter (principal); G43.909 Migraine, unspecified, not intractable, without status migrainosus; I25.10 Atherosclerotic heart disease of native coronary artery without angina pectoris; E11.9 Type 2 diabetes mellitus without complications; F31.9 Bipolar disorder, unspecified; E78.5 Hyperlipidemia, unspecified; Z86.718 Personal history of other venous thrombosis and embolism; Z86.711 Personal history of pulmonary embolism
CPT/HCPCS: 36415; 80053; 85025; 93005; 96365; 96375; J1200; J1885; J2765

== ENCOUNTER 2018-10-10 09:19 | Emergency (ER) | payer OTHER ==
[2018-10-10 12:00] LABS: #Eosinphils 0.1 thou/uL (0.0-0.7); #Lymphocytes 1.5 thou/uL (1.20-3.40); #Monocytes 0.3 thou/uL (0.11-0.59); #Neutrophils 2.8 thou/uL (1.40-6.50); %Basophils 0.4 % (0.0-1.0); %Eosinophils 1.6 % (0.0-10.0); %Lymphocytes 31.7 % (21.0-51.0); %Monocytes 5.7 % (0.0-10.0); %Neutrophils 60.7 % (42.0-75.0); Hemoglobin 12.4 g/dL (12.0-16.0); Mean Corpuscular HGB CONC 30.8 g/dL (32.0-36.0); Mean Corpuscular Hemoglobin 23.8 pg (27.0-31.0); Mean Corpuscular Volume 77.3 fL (78.0-98.0); Mean Platelet Volume 9.7 fL (7.4-10.4); Platelet Count 263 thou/uL (130-400); RBC Distribution Width 15.8 % (11.5-14.5); Red Blood Cell (RBC) Count 5.19 mill/uL (4.20-5.40); White Blood Cell (WBC) Count 4.6 thou/uL (4.8-10.8)
[2018-10-10 12:18] LABS: BHCG - Serum Negative (NEGATIVE); Pregs Control Background? CLEAR/WHITE (CLR/WHITE); Pregs Control Bar Appear? YES (CONTROL BAR)
--- NOTE | 2018-10-10 13:27 | ULT ---
PELVIC ULTRASOUND: Date: 10/10/18 HISTORY: Pelvic pain. Vaginal bleeding x4 days. Second period this month. COMPARISON: None. TECHNIQUE: Transabdominal and endovaginal imaging of the pelvis is performed. Ovaries are interrogated with [place] scale, color flow, Doppler imaging, and spectral waveform analysis. FINDINGS: Limited evaluation of the uterus. There does appear to be heterogeneity of the myometrium which may b e due to technical limitations. The possibility of fibroid disease cannot be excluded. Limited evalua tion of the endometrium, measuring 0.5 cm. There does appear to be a small amount of fluid in the end ometrial cavity at the level of the fundus. Nabothian cysts are noted. Right Ovary: Right ovary is not appreciated. No obvious masses in the right adnexa. Left Ovary: Suboptimal evaluation of actual soft tissue parenchymal echotexture. There does appear t o be anechoic focus in the left adnexa measuring 3.1 x 4.0 x 3.6 cm. An adnexal cyst, possibly ovaria n in origin, is favored. ' There is no free fluid. Ovarian Doppler: There does appear to be some flow on the periphery of the aforementioned adnexal cy st. Flow may be associated with left ovary. IMPRESSION: 1. Limited evaluation of adnexal structures. 2. Limited evaluation of the uterus. There is a small amount of fluid in the endometrial cavity. Fur ther evaluation with pelvic MRI may be beneficial to better assess the uterus, as well as the adnexal structures. POS: CHARI
== END 2018-10-10 13:32 | disposition home or self-care (01) ==
LOC: ERS 09:19
DX: N93.9 Abnormal uterine and vaginal bleeding, unspecified (principal); E11.9 Type 2 diabetes mellitus without complications; E78.5 Hyperlipidemia, unspecified; I10 Essential (primary) hypertension; F31.9 Bipolar disorder, unspecified; Z86.718 Personal history of other venous thrombosis and embolism; Z87.891 Personal history of nicotine dependence; Z79.899 Other long term (current) drug therapy; Z79.4 Long term (current) use of insulin; Z79.01 Long term (current) use of anticoagulants
CPT/HCPCS: 76856; 84703; 85025; 86850; 86900; 86901

== ENCOUNTER 2018-10-19 17:03 | Emergency (ER) | payer OTHER ==
[2018-10-19] MEDS ORDERED: Acetaminophen 500 MG TAB ONE (17:18)
[2018-10-19 17:44] LABS: #Lymphocytes 1.8 thou/uL (1.20-3.40); #Monocytes 0.4 thou/uL (0.11-0.59); #Neutrophils 3.6 thou/uL (1.40-6.50); %Basophils 0.5 % (0.0-1.0); %Eosinophils 0.6 % (0.0-10.0); %Lymphocytes 29.8 % (21.0-51.0); %Monocytes 7.2 % (0.0-10.0); %Neutrophils 61.9 % (42.0-75.0); Hemoglobin 10.7 g/dL (12.0-16.0); Mean Corpuscular Volume 75.7 fL (78.0-98.0); Mean Platelet Volume 9.4 fL (7.4-10.4); Platelet Count 225 thou/uL (130-400); RBC Distribution Width 15.5 % (11.5-14.5); White Blood Cell (WBC) Count 5.9 thou/uL (4.8-10.8)
[2018-10-19 17:48] LABS: PTT 27.8 SEC (22.9-36.1); Prothrombin Time 13.4 SEC (12.0-14.7)
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
== END 2018-10-19 18:22 | disposition home or self-care (01) ==
LOC: ERS 17:03
DX: S09.90XA Unspecified injury of head, initial encounter (principal); I20.9 Angina pectoris, unspecified; E11.9 Type 2 diabetes mellitus without complications; E78.5 Hyperlipidemia, unspecified; I10 Essential (primary) hypertension; Z86.718 Personal history of other venous thrombosis and embolism; Z87.01 Personal history of pneumonia (recurrent); Z86.73 Personal history of transient ischemic attack (TIA), and cerebral infarction without residual deficits; F31.9 Bipolar disorder, unspecified; Z87.891 Personal history of nicotine dependence; Z79.82 Long term (current) use of aspirin; Z79.4 Long term (current) use of insulin; Z79.899 Other long term (current) drug therapy; Y00.XXXA Assault by blunt object, initial encounter
CPT/HCPCS: 36415; 70450; 85025; 85610; 85730

== ENCOUNTER 2018-11-29 12:20 | Outpatient (CLI) | payer OTHER ==
--- NOTE | 2018-11-29 13:00 | ULT ---
Exam: Left lower extremity venous ultrasound with Doppler HISTORY: Left calf pain. COMPARISON: 09/07/2017 TECHNIQUE: Grayscale, color flow, Doppler imaging and spectral waveform analysis performed the left l ower extremity venous system FINDINGS: There is compressibility, presence of flow and augmentation in the common femoral vein, femoral vein and popliteal vein. There is flow and augmentation in the posterior tibial vein. There is flow in the greater saphenous vein. There is compressibility of the profunda femoral vein. IMPRESSION: No evidence of thrombus in the left lower extremity deep venous system.
== END 2018-11-29 12:21 | disposition home or self-care (01) ==
LOC: BICULT 12:20
PROVIDERS: ATTEND Nurse Practitioner Family
DX: M79.662 Pain in left lower leg (principal)

== ENCOUNTER 2018-12-17 13:43 | Emergency (ER) | payer OTHER ==
--- NOTE | 2018-12-17 14:22 | RAD ---
PORTABLE CHEST 1 VIEW: Date: 12/17/18 Time: 1412 hours HISTORY: Chest pain. FINDINGS: Comparison made with exam of 02/25/18. The heart size is normal. The lungs are expanded without focal areas of consolidation, pneumothoraces , or pleural effusions. IMPRESSION: No radiographic evidence of acute cardiopulmonary process. POS: [facility]
[2018-12-17 14:50] LABS: #Lymphocytes 1.6 thou/uL (1.20-3.40); #Monocytes 0.4 thou/uL (0.11-0.59); #Neutrophils 3.9 thou/uL (1.40-6.50); %Basophils 0.5 % (0.0-1.0); %Eosinophils 0.4 % (0.0-10.0); %Lymphocytes 26.9 % (21.0-51.0); %Monocytes 6.2 % (0.0-10.0); %Neutrophils 66.1 % (42.0-75.0); Hemoglobin 11.8 g/dL (12.0-16.0); Mean Corpuscular HGB CONC 32.8 g/dL (32.0-36.0); Mean Corpuscular Hemoglobin 25.8 pg (27.0-31.0); Mean Corpuscular Volume 78.5 fL (78.0-98.0); Mean Platelet Volume 10.2 fL (7.4-10.4); Platelet Count 199 thou/uL (130-400); RBC Distribution Width 15.1 % (11.5-14.5); Red Blood Cell (RBC) Count 4.59 mill/uL (4.20-5.40); White Blood Cell (WBC) Count 5.8 thou/uL (4.8-10.8)
[2018-12-17 15:13] LABS: ALT (SGPT) 20 U/L (8-55); AST (SGOT) 18 U/L (5-34); Albumin 4.1 g/dL (3.5-5.0); Alkaline Phosphatase 71 U/L (40-150); Anion Gap 14 mmol/L (10-20); BUN (Urea Nitrogen) 12 mg/dL (7.0-18.7); Bilirubin, Total 0.4 mg/dL (0.2-1.2); CK (CPK) 76 U/L (29-168); Calc. Creatinine Clearance 0 mL/min (70-130); Calcium 9.6 mg/dL (7.8-10.44); Carbon Dioxide 25 mmol/L (22-29); Chloride 103 mmol/L (98-107); Estimated GFR-MDRD 53; Globulin 3.3 g/dL (2.4-3.5); Glucose 324 mg/dL (70-105); Lipase 52 U/L (8-78); Potassium 3.8 mmol/L (3.5-5.1); Protein, Total 7.4 g/dL (6.0-8.3); Sodium 138 mmol/L (136-145)
[2018-12-17 17:57] LABS: Troponin I Less than 0.010 ng/mL (< 0.028)
== END 2018-12-17 18:56 | disposition home or self-care (01) ==
LOC: ERS 13:43
DX: R07.89 Other chest pain (principal); F31.9 Bipolar disorder, unspecified; E78.5 Hyperlipidemia, unspecified; I10 Essential (primary) hypertension; I25.10 Atherosclerotic heart disease of native coronary artery without angina pectoris; Z87.891 Personal history of nicotine dependence; Z79.899 Other long term (current) drug therapy; Z79.4 Long term (current) use of insulin; Z86.718 Personal history of other venous thrombosis and embolism
CPT/HCPCS: 36415; 71045; 80053; 82550; 83690; 84484; 85025; 85379; 93005; 94760

== ENCOUNTER 2019-02-10 21:35 | Emergency (ER) | payer OTHER ==
[2019-02-10 22:22] LABS: #Eosinphils 0.1 thou/uL (0.0-0.7); #Lymphocytes 1.9 thou/uL (1.20-3.40); #Monocytes 0.4 thou/uL (0.11-0.59); #Neutrophils 3.2 thou/uL (1.40-6.50); %Basophils 0.1 % (0.0-1.0); %Eosinophils 0.9 % (0.0-10.0); %Lymphocytes 34.6 % (21.0-51.0); %Monocytes 7.2 % (0.0-10.0); %Neutrophils 57.2 % (42.0-75.0); Hemoglobin 11.1 g/dL (12.0-16.0); Mean Corpuscular Hemoglobin 25.3 pg (27.0-31.0); Mean Corpuscular Volume 79.2 fL (78.0-98.0); Mean Platelet Volume 9.9 fL (7.4-10.4); Platelet Count 189 thou/uL (130-400); RBC Distribution Width 14.7 % (11.5-14.5); Red Blood Cell (RBC) Count 4.38 mill/uL (4.20-5.40); White Blood Cell (WBC) Count 5.6 thou/uL (4.8-10.8)
[2019-02-10 22:23] LABS: BHCG - Serum Negative (NEGATIVE); Pregs Control Background? CLEAR/WHITE (CLR/WHITE); Pregs Control Bar Appear? YES (CONTROL BAR)
--- NOTE | 2019-02-10 22:27 | RAD ---
PORTABLE FRONTAL CHEST RADIOGRAPH: 02/10/2019 HISTORY: Pain. COMPARISON: None. FINDINGS: The lungs are clear. The heart and mediastinal contour is unremarkable. IMPRESSION: No acute findings. POS: [facility]
[2019-02-10 22:34] LABS: ALT (SGPT) 18 U/L (8-55); AST (SGOT) 19 U/L (5-34); Albumin 3.8 g/dL (3.5-5.0); Alkaline Phosphatase 66 U/L (40-150); Anion Gap 12 mmol/L (10-20); BUN (Urea Nitrogen) 11 mg/dL (7.0-18.7); Bilirubin, Total 0.2 mg/dL (0.2-1.2); Calc. Creatinine Clearance 0 mL/min (70-130); Calcium 9.6 mg/dL (7.8-10.44); Carbon Dioxide 26 mmol/L (22-29); Chloride 104 mmol/L (98-107); Estimated GFR-MDRD 74; Globulin 3.4 g/dL (2.4-3.5); Glucose 219 mg/dL (70-105); Protein, Total 7.2 g/dL (6.0-8.3); Sodium 139 mmol/L (136-145)
[2019-02-10 22:37] LABS: Potassium 2.9 mmol/L (3.5-5.1)
[2019-02-11 00:09] LABS: Troponin I Less than 0.010 ng/mL (< 0.028)
== END 2019-02-11 00:40 | disposition home or self-care (01) ==
LOC: ERS 21:35
DX: R07.2 Precordial pain (principal); E87.6 Hypokalemia; E11.9 Type 2 diabetes mellitus without complications; E78.5 Hyperlipidemia, unspecified; F31.9 Bipolar disorder, unspecified; I10 Essential (primary) hypertension; Z86.718 Personal history of other venous thrombosis and embolism; Z86.711 Personal history of pulmonary embolism; Z86.73 Personal history of transient ischemic attack (TIA), and cerebral infarction without residual deficits; Z87.891 Personal history of nicotine dependence; Z79.82 Long term (current) use of aspirin; Z79.4 Long term (current) use of insulin; Z79.899 Other long term (current) drug therapy
CPT/HCPCS: 36415; 71045; 80053; 84484; 84703; 85025; 85379; 93005

== ENCOUNTER 2019-09-03 20:27 | Emergency (ER) | payer OTHER, SELFPAY ==
--- NOTE | 2019-09-03 23:47 | ULT ---
RIGHT LOWER EXTREMITY DOPPLER VENOUS ULTRASOUND PROVIDED CLINICAL HISTORY: Right lower extremity pain for 2 days TECHNIQUE: Grayscale and color Doppler sonography with spectral analysis was performed of the right common femor al, femoral, popliteal, posterior tibial, greater saphenous and profunda femoral veins. FINDINGS: There is normal compression, flow and augmentation seen within the deep venous structures o f the right lower extremity. IMPRESSION: No sonographic evidence for right lower extremity deep venous thrombosis.
--- NOTE | 2019-09-07 14:30 | EKG ---
Test Reason : Blood Pressure : / mmHG Vent. Rate : 068 BPM Atrial Rate : 068 BPM P-R Int : 176 ms QRS Dur : 084 ms QT Int : 444 ms P-R-T Axes : 021 -27 031 degrees QTc Int : 472 ms Normal sinus rhythm Low voltage QRS Borderline ECG Confirmed by CHITRA RODRIGUEZ M.D. ([id number]), pictures editor JO FORREST ([id number]) on 09/07/2019 2:30:04 PM Referred By: Confirmed By:CHITRA RODRIGUEZ M.D.
== END 2019-09-04 00:26 | disposition home or self-care (01) ==
LOC: ERS 20:27
DX: M79.662 Pain in left lower leg (principal); D64.89 Other specified anemias; I20.9 Angina pectoris, unspecified; E78.5 Hyperlipidemia, unspecified; I10 Essential (primary) hypertension; Z86.718 Personal history of other venous thrombosis and embolism; Z86.711 Personal history of pulmonary embolism; Z86.73 Personal history of transient ischemic attack (TIA), and cerebral infarction without residual deficits; Z87.891 Personal history of nicotine dependence; Z79.4 Long term (current) use of insulin; Z79.899 Other long term (current) drug therapy
CPT/HCPCS: 93005

== ENCOUNTER 2019-10-09 13:28 | Emergency (ER) | payer SELFPAY ==
[2019-10-09 14:17] LABS: #Lymphocytes 1.4 thou/uL (1.20-3.40); #Monocytes 0.5 thou/uL (0.11-0.59); #Neutrophils 4.2 thou/uL (1.40-6.50); %Basophils 0.4 % (0.0-1.0); %Eosinophils 0.2 % (0.0-10.0); %Lymphocytes 22.8 % (21.0-51.0); %Monocytes 7.5 % (0.0-10.0); Hemoglobin 12.5 g/dL (12.0-16.0); Mean Corpuscular HGB CONC 33.3 g/dL (32.0-36.0); Mean Corpuscular Hemoglobin 26.4 pg (27.0-31.0); Mean Corpuscular Volume 79.2 fL (78.0-98.0); Platelet Count 237 thou/uL (130-400); RBC Distribution Width 16.7 % (11.5-14.5); Red Blood Cell (RBC) Count 4.72 mill/uL (4.20-5.40)
[2019-10-09 14:46] LABS: ALT (SGPT) 23 U/L (8-55); AST (SGOT) 26 U/L (5-34); Albumin 4.1 g/dL (3.5-5.0); Alkaline Phosphatase 78 U/L (40-110); Anion Gap 11 mmol/L (10-20); BUN (Urea Nitrogen) 12 mg/dL (7.0-18.7); Bilirubin, Total 0.6 mg/dL (0.2-1.2); Calc. Creatinine Clearance 0 mL/min (70-130); Calcium 9.3 mg/dL (7.8-10.44); Carbon Dioxide 26 mmol/L (22-29); Chloride 103 mmol/L (98-107); Estimated GFR-MDRD 65; Globulin 3.5 g/dL (2.4-3.5); Glucose 217 mg/dL (70-105); Potassium 3.2 mmol/L (3.5-5.1); Protein, Total 7.6 g/dL (6.0-8.3); Sodium 137 mmol/L (136-145)
== END 2019-10-09 14:40 | disposition home or self-care (01) ==
LOC: ERS 13:28
DX: E11.65 Type 2 diabetes mellitus with hyperglycemia (principal); I20.9 Angina pectoris, unspecified; E78.5 Hyperlipidemia, unspecified; E78.00 Pure hypercholesterolemia, unspecified; I10 Essential (primary) hypertension; Z86.73 Personal history of transient ischemic attack (TIA), and cerebral infarction without residual deficits; Z86.718 Personal history of other venous thrombosis and embolism; Z86.711 Personal history of pulmonary embolism; F31.9 Bipolar disorder, unspecified; Z87.891 Personal history of nicotine dependence; Z79.4 Long term (current) use of insulin; Z79.899 Other long term (current) drug therapy; Z79.01 Long term (current) use of anticoagulants
CPT/HCPCS: 36415; 36416; 80053; 85025; 93005

== ENCOUNTER 2019-11-29 11:34 | Emergency (ER) | payer SELFPAY ==
[2019-11-29] MEDS ORDERED: Ketorolac Tromethamine 30 MG/ML VIAL ONE (14:27)
[2019-11-29 14:28] LABS: #Lymphocytes 1.6 thou/uL (1.20-3.40); #Monocytes 0.4 thou/uL (0.11-0.59); #Neutrophils 5.1 thou/uL (1.40-6.50); %Basophils 0.3 % (0.0-1.0); %Eosinophils 0.2 % (0.0-10.0); %Lymphocytes 22.1 % (21.0-51.0); %Monocytes 5.5 % (0.0-10.0); Hemoglobin 12.3 g/dL (12.0-16.0); Mean Corpuscular HGB CONC 32.8 g/dL (32.0-36.0); Mean Corpuscular Hemoglobin 27.1 pg (27.0-31.0); Mean Corpuscular Volume 82.6 fL (78.0-98.0); Mean Platelet Volume 9.6 fL (7.4-10.4); Platelet Count 204 thou/uL (130-400); RBC Distribution Width 15.6 % (11.5-14.5); Red Blood Cell (RBC) Count 4.54 mill/uL (4.20-5.40); White Blood Cell (WBC) Count 7.1 thou/uL (4.8-10.8)
[2019-11-29 14:56] LABS: ALT (SGPT) 17 U/L (8-55); AST (SGOT) 18 U/L (5-34); Albumin 3.8 g/dL (3.5-5.0); Alkaline Phosphatase 70 U/L (40-110); Anion Gap 12 mmol/L (10-20); BUN (Urea Nitrogen) 14 mg/dL (7.0-18.7); Bilirubin, Total 0.3 mg/dL (0.2-1.2); Calc. Creatinine Clearance 0 mL/min (70-130); Calcium 9.1 mg/dL (7.8-10.44); Carbon Dioxide 26 mmol/L (22-29); Chloride 107 mmol/L (98-107); Estimated GFR-MDRD 81; Globulin 3.4 g/dL (2.4-3.5); Glucose 161 mg/dL (70-105); Potassium 3.1 mmol/L (3.5-5.1); Protein, Total 7.2 g/dL (6.0-8.3); Sodium 142 mmol/L (136-145)
== END 2019-11-29 15:35 | disposition home or self-care (01) ==
LOC: ERS 11:34
DX: R53.1 Weakness (principal); E11.9 Type 2 diabetes mellitus without complications; E78.5 Hyperlipidemia, unspecified; F31.9 Bipolar disorder, unspecified; I10 Essential (primary) hypertension; Z86.73 Personal history of transient ischemic attack (TIA), and cerebral infarction without residual deficits; Z86.711 Personal history of pulmonary embolism; Z86.718 Personal history of other venous thrombosis and embolism; Z87.891 Personal history of nicotine dependence; Z79.01 Long term (current) use of anticoagulants; Z79.899 Other long term (current) drug therapy
CPT/HCPCS: 36415; 80053; 85025; 96374; J1885